=== PATIENT | male | born 1955 | race Caucasian/White ===

== ENCOUNTER → 2016-05-17 | Outpatient (CLI) | payer MEDICARE, BC, OTHER ==
[2016-05-17 11:28] LABS: ALT 81 U/L (21-72); AST 65 U/L (17-59); Alkaline Phosphatase 80 U/L (38-126); Anion Gap 14 mmol/L; Blood Urea Nitrogen 12 mg/dL (9-20); Calcium 9.5 mg/dL (8.4-10.2); Carbon Dioxide 28 mmol/L (22-30); Chloride 102 mmol/L (98-107); Cholesterol 177 mg/dL (<200); Glucose 169 mg/dL (74-99); HDL Cholesterol 46 mg/dL (40-60); Non-African American GFR(MDRD) >60 (>60 ml/min/1.73 sqM); Potassium 4.4 mmol/L (3.5-5.1); Sodium 144 mmol/L (137-145); Total Bilirubin 0.5 mg/dL (0.2-1.3); Total Protein 7.8 g/dL (6.3-8.2); Triglycerides 222 mg/dL (<150)
== END | disposition home or self-care (01) ==
LOC: LABWHC1 10:47
PROVIDERS: ATTEND Internal Medicine Endocrinology, Diabetes & Metabolism
DX: E11.65 Type 2 diabetes mellitus with hyperglycemia (principal)
CPT/HCPCS: 36415; 80053; 80061; 82043

== ENCOUNTER → 2016-05-23 | Outpatient (CLI) | payer MEDICARE, BC, OTHER | END | disposition home or self-care (01) | LOC: LABWHC1 10:42 | PROVIDERS: ATTEND Internal Medicine Endocrinology, Diabetes & Metabolism | DX: E11.65 Type 2 diabetes mellitus with hyperglycemia (principal) | CPT/HCPCS: 36415; 84439; 84443; 84480 ==

== ENCOUNTER → 2016-06-24 | Outpatient (CLI) | payer MEDICARE, BC, OTHER ==
[2016-06-24 10:24] LABS: ALT 73 U/L (21-72); AST 58 U/L (17-59); Cholesterol 177 mg/dL (<200); Creatine Kinase 69 U/L (55-170); HDL Cholesterol 48 mg/dL (40-60); Triglycerides 179 mg/dL (<150)
== END ==
LOC: LABWHC1 09:30
PROVIDERS: ATTEND Internal Medicine Clinical Cardiac Electrophysiology
DX: E78.2 Mixed hyperlipidemia (principal)
CPT/HCPCS: 36415; 80061; 82550; 84450; 84460

== ENCOUNTER 2016-07-02 15:00 | Observation (INO) | payer OTHER, MEDICARE, BC ==
[2016-07-02] MEDS ORDERED: ASPIRIN 81 MG CHEW PO STA (15:58)
[2016-07-02] MEDS ORDERED: NITROGLYCERIN SL TABS 0.4 MG TAB SUBLINGUAL STA ×3 (15:58)
--- NOTE | 2016-07-02 16:01 | ED ---
General Adult HPI - General Chief complaint: Chest Pain Stated complaint: Chest Pain/Tachycardia Time Seen by Provider: 07/02/16 15:15 Source: patient, RN notes reviewed Mode of arrival: wheelchair Limitations: no limitations - History of Present Illness Initial comments: Patient is a pleasant 61-year-old male presenting to the emergency Department with chest discomfort and tachycardia. Patient was seen his [facility] for routine follow-up for medications. Patient did have an episode of chest discomfort while there. Patient was given nitroglycerin with partial improvement of symptoms. Discomfort is still somewhat more than moderate, rated 7/10. Discomfort feels like heaviness. Patient states he was sweaty earlier. Patient admits there is some mild associated dyspnea. No nausea. Patient states he does have these episodes frequently for many years. No leg pain or swelling. No cough or fever. - Related Data Home Medications Medication Instructions Recorded Confirmed HYDROcodone/APAP 10-325MG [[place] 1 tab PO Q4H PRN 12/07/13 07/02/16 10] Omeprazole [PriLOSEC] 20 mg PO AC-BID 12/07/13 07/02/16 metFORMIN HCL [Glucophage] 1,000 mg PO QAM 12/07/13 07/02/16 Aspirin EC [Ecotrin Low Dose] 81 mg PO BID 02/19/16 07/02/16 DULoxetine HCL [Cymbalta] 120 mg PO DAILY 02/19/16 07/02/16 Pregabalin [Lyrica] 150 mg PO BID 02/19/16 07/02/16 Ubidecarenone [Co Q-10] 100 mg PO BID 02/19/16 07/02/16 Amitriptyline HCl [Elavil] 50 mg PO HS 07/02/16 07/02/16 Artificial Tears-Hypromellose 1 drops BOTH EYES TID PRN 07/02/16 07/02/16 [Artificial Tear Drops] Atorvastatin [Lipitor] 10 mg PO HS 07/02/16 07/02/16 Cinnamon Bark [Cinnamon] 500 mg PO DAILY 07/02/16 07/02/16 L.acidoph,Paracasei, B.lactis 1 cap PO QAM 07/02/16 07/02/16 [Probiotic] Losartan [Cozaar] 25 mg PO DAILY 07/02/16 07/02/16 Multivitamins, Thera [Multivitamin] 1 tab PO DAILY 07/02/16 07/02/16 metFORMIN HCL [Glucophage] 500 mg PO W/SUPPER 07/02/16 07/02/16 Allergies Allergy/AdvReac Type Severity Reaction Status Date / Time Sulfa (Sulfonamide Allergy Unknown Verified 07/02/16 16:42 Antibiotics) Childhood Review of Systems ROS Statement: Those systems with pertinent positive or pertinent negative responses have been documented in the HPI. ROS Other: All systems not noted in ROS Statement are negative. Constitutional: Denies: fever Eyes: Denies: eye pain ENT: Denies: ear pain Respiratory: Reports: dyspnea Cardiovascular: Reports: chest pain Endocrine: Reports: fatigue Gastrointestinal: Denies: abdominal pain, nausea Genitourinary: Denies: dysuria Musculoskeletal: Denies: back pain Skin: Denies: rash Neurological: Denies: weakness Past Medical History Past Medical History: Chest Pain / Angina, Diabetes Mellitus, GERD/Reflux, Hyperlipidemia, Hypertension, Musculoskeletal Disorder, Sleep Apnea/CPAP/BIPAP Additional Past Medical History / Comment(s): CHRONIC BACK PAIN. HIATAL HERNIA. GOUT. History of Any Multi-Drug Resistant Organisms: None Reported Past Surgical History: Back Surgery, Heart Catheterization, Orthopedic Surgery Additional Past Surgical History / Comment(s): 2 SPINAL SURG, LAST 07/29/13. Past Anesthesia/Blood Transfusion Reactions: No Reported Reaction Past Psychological History: No Psychological Hx Reported Smoking Status: Former smoker Past Alcohol Use History: Occasional Past Drug Use History: None Reported General Exam Limitations: no limitations General appearance: alert, in no apparent distress Head exam: Present: atraumatic Eye exam: Present: normal appearance, PERRL ENT exam: Present: normal oropharynx Neck exam: Present: normal inspection Respiratory exam: Present: normal lung sounds bilaterally Cardiovascular Exam: Present: tachycardia Expanded Peripheral pulses: 2+: Radial (R), Radial (L), Dorsalis Pedis (R), Dorsalis Pedis (L) GI/Abdominal exam: Present: soft. Absent: tenderness Extremities exam: Present: normal inspection. Absent: pedal edema, calf tenderness Neurological exam: Present: alert Psychiatric exam: Present: normal affect, normal mood Skin exam: Absent: rash Course Vital Signs 07/02/16 07/02/16 07/02/16 15:14 16:05 16:10 Temperature 97.9 F Pulse Rate 118 H 115 H 128 H Respiratory 18 18 18 Rate Blood Pressure 123/99 131/76 106/59 O2 Sat by Pulse 93 L 97 95 Oximetry EKG Findings - EKG Comments: EKG Findings:: Sinus tachycardia at 116. Normal intervals. Left axis. Inferior Q waves. No acute ST change. Medical Decision Making - Medical Decision Making Patient reevaluated and resting comfortably in bed. Patient and family updated on results and plan. Magnesium has been replaced. Case discussed in detail with Dr. Sales, who will admit for Dr. Tavares. Admission orders written. IV heparin started. Cardiology placed for consult. - Lab Data Result diagrams: 07/02/16 15:20 07/02/16 15:20 Lab Results 07/02/16 07/02/16 07/02/16 Range/Units 15:20 15:20 15:20 WBC 7.8 (3.8-10.6) k/uL RBC 4.87 (4.30-5.90) m/uL Hgb 14.1 (13.0-17.5) gm/dL Hct 42.0 (39.0-53.0) % MCV 86.4 (80.0-100.0) fL MCH 29.1 (25.0-35.0) pg MCHC 33.6 (31.0-37.0) g/dL RDW 13.9 (11.5-15.5) % Plt Count 243 (150-450) k/uL Neutrophils % 48 % Lymphocytes % 39 % Monocytes % 7 % Eosinophils % 3 % Basophils % 0 % Neutrophils # 3.8 (1.3-7.7) k/uL Lymphocytes # 3.0 (1.0-4.8) k/uL Monocytes # 0.5 (0-1.0) k/uL Eosinophils # 0.3 (0-0.7) k/uL Basophils # 0.0 (0-0.2) k/uL PT (9.0-12.0) sec INR (<1.1) APTT (22.0-30.0) sec D-Dimer (<0.60) mg/L FEU Sodium 141 (137-145) mmol/L Potassium 4.8 (3.5-5.1) mmol/L Chloride 101 (98-107) mmol/L Carbon Dioxide 24 (22-30) mmol/L Anion Gap 16 mmol/L BUN 14 (9-20) mg/dL Creatinine 1.00 (0.66-1.25) mg/dL Est GFR (MDRD) Af Amer >60 (>60 ml/min/1.73 sqM) Est GFR (MDRD) Non-Af >60 (>60 ml/min/1.73 sqM) Glucose 125 H (74-99) mg/dL Calcium 10.3 H (8.4-10.2) mg/dL Magnesium 1.4 L (1.6-2.3) mg/dL Total Bilirubin 0.7 (0.2-1.3) mg/dL AST 81 H (17-59) U/L ALT 101 H (21-72) U/L Alkaline Phosphatase 84 (38-126) U/L Total Creatine Kinase 75 (55-170) U/L CK-MB (CK-2) 1.1 (0.0-2.4) ng/mL CK-MB (CK-2) Rel Index 1.5 Troponin I <0.012 (0.000-0.034) ng/mL NT-Pro-B Natriuret Pep pg/mL Total Protein 8.2 (6.3-8.2) g/dL Albumin 4.9 (3.5-5.0) g/dL 07/02/16 07/02/16 Range/Units 15:20 15:20 WBC (3.8-10.6) k/uL RBC (4.30-5.90) m/uL Hgb (13.0-17.5) gm/dL Hct (39.0-53.0) % MCV (80.0-100.0) fL MCH (25.0-35.0) pg MCHC (31.0-37.0) g/dL RDW (11.5-15.5) % Plt Count (150-450) k/uL Neutrophils % % Lymphocytes % % Monocytes % % Eosinophils % % Basophils % % Neutrophils # (1.3-7.7) k/uL Lymphocytes # (1.0-4.8) k/uL Monocytes # (0-1.0) k/uL Eosinophils # (0-0.7) k/uL Basophils # (0-0.2) k/uL PT 11.1 (9.0-12.0) sec INR 1.1 (<1.1) APTT 24.5 (22.0-30.0) sec D-Dimer 0.18 (<0.60) mg/L FEU Sodium (137-145) mmol/L Potassium (3.5-5.1) mmol/L Chloride (98-107) mmol/L Carbon Dioxide (22-30) mmol/L Anion Gap mmol/L BUN (9-20) mg/dL Creatinine (0.66-1.25) mg/dL Est GFR (MDRD) Af Amer (>60 ml/min/1.73 sqM) Est GFR (MDRD) Non-Af (>60 ml/min/1.73 sqM) Glucose (74-99) mg/dL Calcium (8.4-10.2) mg/dL Magnesium (1.6-2.3) mg/dL Total Bilirubin (0.2-1.3) mg/dL AST (17-59) U/L ALT (21-72) U/L Alkaline Phosphatase (38-126) U/L Total Creatine Kinase (55-170) U/L CK-MB (CK-2) (0.0-2.4) ng/mL CK-MB (CK-2) Rel Index Troponin I (0.000-0.034) ng/mL NT-Pro-B Natriuret Pep <11 pg/mL Total Protein (6.3-8.2) g/dL Albumin (3.5-5.0) g/dL - Radiology Data Radiology results: image reviewed (Chest x-ray shows no acute process) Critical Care Time Critical Care Time: Yes Total Critical Care Time: 31 Disposition Clinical Impression: Unstable angina pectoris Disposition: ADMITTED IP TO THIS HOSP
[2016-07-02 16:10] LABS: Basophils % (A) 0 %; CH 29.8; CHCM 34.7; Eosinophils # (A) 0.3 k/uL (0-0.7); Eosinophils % (A) 3 %; HDW 2.98; HGB 14.1 gm/dL (13.0-17.5); Luc # (Auto) 0.22; Luc % (Auto) 3; Lymphocytes % (A) 39 %; MCH 29.1 pg (25.0-35.0); MCHC 33.6 g/dL (31.0-37.0); MCV 86.4 fL (80.0-100.0); Mean Platelet Volume 8.2; Monocytes # (A) 0.5 k/uL (0-1.0); Monocytes % (A) 7 %; Neutrophils # (A) 3.8 k/uL (1.3-7.7); Neutrophils % (A) 48 %; RBC 4.87 m/uL (4.30-5.90); RDW 13.9 % (11.5-15.5); WBC 7.8 k/uL (3.8-10.6); WBC (Perox) 7.79
[2016-07-02 16:22] LABS: ALT 101 U/L (21-72); AST 81 U/L (17-59); Alkaline Phosphatase 84 U/L (38-126); Anion Gap 16 mmol/L; Blood Urea Nitrogen 14 mg/dL (9-20); Calcium 10.3 mg/dL (8.4-10.2); Carbon Dioxide 24 mmol/L (22-30); Chloride 101 mmol/L (98-107); Glucose 125 mg/dL (74-99); Magnesium 1.4 mg/dL (1.6-2.3); Non-African American GFR(MDRD) >60 (>60 ml/min/1.73 sqM); Potassium 4.8 mmol/L (3.5-5.1); Sodium 141 mmol/L (137-145); Total Bilirubin 0.7 mg/dL (0.2-1.3); Total Protein 8.2 g/dL (6.3-8.2)
--- NOTE | 2016-07-02 16:26 | XR ---
EXAMINATION TYPE: XR chest 2V DATE OF EXAM: 07/02/2016 4:20 PM COMPARISON: 02/19/2016 INDICATION: Chest pain TECHNIQUE: Single frontal view of the chest is obtained. FINDINGS: The heart size is normal. The pulmonary vasculature is normal. The lungs are clear. IMPRESSION: 1. No acute pulmonary process.
[2016-07-02 16:27] LABS: INR 1.1 (<1.1); Partial Thromboplastin Time 24.5 sec (22.0-30.0); Prothrombin Time 11.1 sec (9.0-12.0)
[2016-07-02 16:36] LABS: Creatine Kinase 75 U/L (55-170)
[2016-07-02] MEDS ORDERED: MAGNESIUM OXIDE 400 MG TAB PO STA (16:42)
[2016-07-02] MEDS ORDERED: MAGNESIUM SULFATE-D5W PMX 1 GM in DEXTROSE/WATER 1 100ML.BAG IVPB ONE (16:42)
[2016-07-02 16:50] LABS: Creatine Kinase MB 1.1 ng/mL (0.0-2.4); Troponin I <0.012 ng/mL (0.000-0.034)
[2016-07-02] MEDS ORDERED: NITROGLYCERIN OINT 1 INCH/GM PACKET TOPICAL STA (16:53)
[2016-07-02] MEDS ORDERED: HEPARIN SODIUM,PORCINE 5,000 UNIT/ML 1 ML VIAL IV PRN (17:10)
[2016-07-02] MEDS ORDERED: HEPARIN SODIUM,PORCINE 5,000 UNIT/ML 1 ML VIAL IV ONE (17:10)
[2016-07-02] MEDS ORDERED: NITROGLYCERIN SL TABS 0.4 MG TAB SUBLINGUAL PRN (17:10)
[2016-07-02] MEDS ORDERED: HEPARIN SODIUM,PORCINE/D5W PMX 25,000 UNIT in DEXTROSE/WATER 1 500ML.BAG IV SCH (17:15)
[2016-07-02] MEDS ORDERED: ARTIFICIAL TEARS-HYPROMELLOSE DROPS 15 ML BTL BOTH EYES PRN (17:16)
[2016-07-02 18:25] LABS: Glucose,Whole Blood 136 mg/dL (75-99)
[2016-07-02] MEDS: metFORMIN 500 MG TAB PO SCH (18:56)
[2016-07-02] MEDS: PANTOPRAZOLE 40 MG TABLET PO SCH (18:57)
[2016-07-02] MEDS: PREGABALIN 75 MG CAP PO SCH (20:30)
[2016-07-02 20:34] LABS: Glucose,Whole Blood 156 mg/dL (75-99)
[2016-07-02] MEDS ORDERED: NON-FORMULARY DRUG (Ubidecarenone [Co Q-10] 100 MG) PO SCH (21:00)
[2016-07-02] MEDS ORDERED: ATORVASTATIN 10 MG TAB PO SCH (21:00)
[2016-07-02] MEDS ORDERED: AMITRIPTYLINE HCL 50 MG TAB PO SCH (21:00)
[2016-07-02 23:14] LABS: Creatine Kinase 73 U/L (55-170)
[2016-07-02 23:28] LABS: Troponin I <0.012 ng/mL (0.000-0.034)
[2016-07-02] MEDS: NITROGLYCERIN OINT 1 INCH/GM PACKET TOPICAL SCH (23:32)
[2016-07-03] MEDS: HYDROcodone/APAP 10-325MG 1 EACH TAB PO PRN ×2 (03:51→14:07)
[2016-07-03 04:01] LABS: Mean Platelet Volume 7.9
[2016-07-03 04:13] LABS: Cholesterol 159 mg/dL (<200); Creatine Kinase 60 U/L (55-170); HDL Cholesterol 36 mg/dL (40-60)
[2016-07-03 04:25] LABS: Creatine Kinase MB 0.8 ng/mL (0.0-2.4); Troponin I <0.012 ng/mL (0.000-0.034)
[2016-07-03 04:31] LABS: Triglycerides 695 mg/dL (<150)
[2016-07-03] MEDS: NITROGLYCERIN OINT 1 INCH/GM PACKET TOPICAL SCH ×3 (05:38→18:31)
[2016-07-03 07:02] LABS: Glucose,Whole Blood 141 mg/dL (75-99)
[2016-07-03 08:02] VITALS: RESP 18
[2016-07-03] MEDS ORDERED: NON-FORMULARY DRUG (Cinnamon Bark [Cinnamon] 500 MG) PO SCH (09:00)
[2016-07-03] MEDS ORDERED: ASPIRIN 325 MG TAB PO SCH (09:00)
[2016-07-03] MEDS ORDERED: metFORMIN 500 MG TAB PO SCH (09:00)
[2016-07-03] MEDS ORDERED: DULoxetine HCL 60 MG CAPSULE.DR PO SCH (09:00)
[2016-07-03] MEDS ORDERED: LOSARTAN 25 MG TAB PO SCH (09:00)
[2016-07-03] MEDS ORDERED: REGADENOSON 0.4 MG/5 ML SYRINGE IV ONE (10:50)
[2016-07-03] MEDS ORDERED: AMINOPHYLLINE 500 MG/20 ML VIAL IV PRN (10:50)
[2016-07-03] MEDS ORDERED: FENOFIBRATE 160 MG TAB PO SCH (11:00)
[2016-07-03] MEDS ORDERED: METOPROLOL SUCCINATE (ER) 25 MG TAB.ER.24H PO SCH (11:00)
[2016-07-03 11:04] LABS: Hemoglobin A1C 7.1 % (4.2-6.1)
--- NOTE | 2016-07-03 11:21 | CONS ---
DATE OF CONSULTATION: Mr. Nation is a 61-year-old gentleman who is seen for the cardiac evaluation. This patient has been regularly followed by Dr. Bradley. He was in the office yesterday and at that time patient was noticed to be tachycardic and he complained some intermittent heaviness in the chest. Patient gives a history that he gets this heaviness in the chest on and off which is not definitely related to exertion. Patient had a cardiac catheterization done several years ago which was normal. There is no definite previous history of myocardial infarction. Patient has a history of diabetes. EKG showed evidence of sinus tachycardia and left axis deviation. Patient's past medical history includes a history of diabetes, hyperlipidemia, hypertension, sleep apnea. Patient also has a history of chronic back pain, hiatal hernia, gout, two spinal surgeries and a back surgery, as well as orthopedic surgery. SMOKING HISTORY: Patient is a former smoker. Patient's home medications included Cozaar, Glucophage, Cinnamon, Lipitor 10 mg, Elavil, Prilosec, Cymbalta and Lyrica. Physical examination at present reveals a 61-year-old gentleman who is obesely-built, does not appear to be in any acute distress at present. Patient's heart rate initially was 120, heart rate now is in 90 to 100. Blood pressure is 110/70 mmHg. HEENT examination is negative. Neck is supple. There is no increase in jugular venous pressure. Both the carotid pulses are felt. There is no bruit. Chest is symmetrical. HEART: The PMI is not felt. First and second heart sounds are normal. There is no evidence of any murmur. Lungs are clinically clear to auscultation and percussion. Abdomen is soft. EXTREMITIES: Peripheral pulsations are 2+. EKG shows sinus tachycardia with a left axis deviation. Cardiac enzymes are negative. FINAL IMPRESSION: 1. This patient is admitted with palpitations and chest discomfort which is suggestive of atypical. Cardiac enzymes are normal. EKG does not show any acute ischemic changes. 2. History of hyperlipidemia and a significant elevation in the triglycerides. RECOMMENDATIONS: I will put the patient on metoprolol succinate 25 mg daily and we will ( ) the patient with Lexiscan Cardiolite study. Patient will be also started on TriCor 160 mg daily and Lipitor will be increased to 40 mg daily. The patient's triglycerides are in the range of 650.
[2016-07-03 11:47] LABS: Glucose,Whole Blood 125 mg/dL (75-99)
[2016-07-03] MEDS ORDERED: MULTIVITAMINS, THERA 1 EACH TAB PO SCH (12:00)
--- NOTE | 2016-07-03 13:58 | NM ---
EXAMINATION TYPE: NM stress lexiscan cardiolite DATE OF EXAM: 07/03/2016 1:45 PM COMPARISON: 05/04/2010 HISTORY: Chest pain TECHNIQUE: After the intravenous administration of 10.97 mCi Tc 99m Sestamibi - Cardiolite resting S PECT images acquired 45 minutes post injection. The patient received 0.4mg Lexiscan, 27.2 mCi Tc 99m Sestamibi - Stress images obtained [address] injection FINDINGS: Review of stress and rest SPECT images demonstrates no distinct perfusion abnormality. Gated analysi s shows normal wall motion with an estimated left ventricular ejection fraction of 67 %. There is diminished radiotracer accumulation along the inferior wall on resting and stress images. Th is appears to be fixed. No stress-induced ischemic changes are evident. IMPRESSION: 1. Fixed defect inferior wall can be compatible with prior infarct. 2. No scintigraphic evidence for reversible ischemia. 3. Fixed defect is an interval finding from the comparison of 2010. Correlate for interval infarct.
[2016-07-03] MEDS: PANTOPRAZOLE 40 MG TABLET PO SCH ×2 (14:01→18:31)
[2016-07-03] MEDS: PREGABALIN 75 MG CAP PO SCH (14:01)
[2016-07-03] MEDS: MAGNESIUM SULFATE-D5W PMX 1 GM in DEXTROSE/WATER 1 100ML.BAG IVPB SCH ×3 (14:08→16:33)
[2016-07-03 15:39] VITALS: BP 150/84; PULSE 101; TEMP 98.1
[2016-07-03 17:11] LABS: Glucose,Whole Blood 172 mg/dL (75-99)
--- NOTE | 2016-07-03 17:51 | HP ---
DATE OF ADMISSION: This dictation is both H&P and discharge summary. Patient is a 61-year-old who came in from [facility] where he was found to be tachycardic. Patient was having some pressure-like sensation without any chest heaviness sensation from tachycardia. The patient's TSH will be obtained and patient's pain is mostly related to tachycardia and patient was sent over by Cardiology. Patient underwent stress test which was negative. Patient's chest pain does not appear to be gastroesophageal reflux disease, nonreproducible and completely resolved at this point of time. Patient underwent a stress test, which showed some inferior wall perfusion defects which were also found in the past and after which patient underwent cardiac catheterization. At that time, the patient did not have any significant coronary occlusion. The patient's EKG showed sinus tachycardia and patient's d-dimer is negative. Patient was evaluated by Cardiology and patient has hypertriglyceridemia because of which, they are recommending a statin and TriCor. The patient's liver enzymes are borderline elevated, because of which I am repeating liver enzymes in about a week considering that he is also going to take TriCor which can elevated liver enzymes and statin, which can also elevate liver enzymes. Patient will be discharged today if cleared by Cardiology. Patient denied any fever, chills, cough, runny nose. ROS: All other systems were reviewed and were negative. PAST MEDICAL HISTORY: Significant for diabetes mellitus, gastroesophageal reflux disease, hyperlipidemia, hypertension, osteoarthritis, sleep apnea, back surgery in the past, anxiety and depression. Family history is significant for asthma, CVA, TIA, dementia, hyperlipidemia, hypertension, osteoarthritis. SOCIAL HISTORY: Quit smoking in April 2016. Denied any alcohol abuse or any drug abuse. PHYSICAL EXAMINATION: VITAL SIGNS: Temperature 98.1, pulse of 101, respiratory rate of 18, blood pressure is 150/84, saturating at 92% on room air. GENERAL: The patient is alert and oriented x3, not in any acute distress. Well developed, well nourished. HEENT: Pupils are round and equally reacting to light. EOMI. No scleral icterus. No conjunctival pallor. Normocephalic, atraumatic. No pharyngeal erythema. No thyromegaly. CARDIOVASCULAR: S1 and S2 present, tachycardic. No murmurs, rubs, or gallops. PULMONARY: Chest is clear to auscultation, no wheezing or crackles. ABDOMEN: Soft, nontender, nondistended, normoactive bowel sounds. No palpable organomegaly. MUSCULOSKELETAL: No joint swelling or deformity. EXTREMITIES: No cyanosis, clubbing, or pedal edema. NEUROLOGICAL: Gross neurological examination did not reveal any focal deficits. SKIN: No rashes. LABORATORY DATA: CBC, CMP, essentially within normal limits. Magnesium of 1.4 and now to 1.6, which will be supplemented. Calcium due to ( ) patient is minimally elevated. AST and ALT are 81 and 101, minimally elevated due to probably nonalcoholic steatohepatitis. ASSESSMENT AND PLAN: 1. Palpitations and chest discomfort. Stress test findings as mentioned above. Patient if cleared by Cardiology will be discharged today. 2. Hyperlipidemia and hypertriglyceridemia. 3. Hypertension. 4. Gastroesophageal reflux disease. 5. Type 2 diabetes mellitus. 6. Osteoarthritis. 7. Sleep apnea. Patient will be discharged today. Patient will continue his home medications. Additionally, will rule out coronary artery disease and unstable angina. Patient will follow with his primary care physician, Dr. Usman Cordoba in 3 to 7 days. Activity as tolerated. Follow with Mirna in about a week. Repeat liver enzymes in a week, results to be faxed to PCP. LUIS DANIEL
[2016-07-03] MEDS: metFORMIN 500 MG TAB PO SCH (18:31)
[2016-07-03] MEDS ORDERED: ATORVASTATIN 40 MG TAB PO SCH (21:00)
--- NOTE | 2016-07-04 07:50 | ECHOF ---
Referral Reason:chest pain MEASUREMENTS -------- HEIGHT: 177.8 cm WEIGHT: 116.6 kg BP: 117/67 RVIDd: 3.6 cm (< 3.3) IVSd: 1.1 cm (0.6 - 1.1) LVIDd: 4.4 cm (3.9 - 5.3) LVPWd: 1.3 cm (0.6 - 1.1) IVSs: 1.7 cm LVIDs: 2.9 cm LVPWs: 1.6 cm LA Diam: 3.8 cm (2.7 - 3.8) LAESV Index (A-L): 13.73 ml/m Ao Diam: 3.6 cm (2.0 - 3.7) AV Cusp: 2.6 cm (1.5 - 2.6) LA Diam: 3.6 cm (2.7 - 3.8) MV EXCURSION: 17.701 mm (> 18.000) MV EF SLOPE: 42 mm/s (70 - 150) EPSS: 0.6 cm MV E Ace: 0.60 m/s MV DecT: 179 ms MV A Ace: 0.63 m/s MV E/A Ratio: 0.95 FINDINGS -------- Sinus rhythm. This was a technically good study. The left ventricular size is normal. There is mild concentric left ventricular hypertrophy. Overall left ventricular systolic function is normal with, an EF between 60 - 65 %. The right ventricle is mildly enlarged. The left atrium is normal in size. Normal LA size by volume 22+/-6 ml/m2. The right atrium is normal in size. The aortic valve is trileaflet and appears structurally normal. Mild mitral annular calcification present. The tricuspid valve appears structurally normal. No regurgitation noted The aortic root size is normal. Normal inferior vena cava with normal inspiratory collapse consistent with estimated right atrial pressure of 5 mmHg. There is no pericardial effusion. CONCLUSIONS -------- 1. Sinus rhythm. 2. Mild mitral annular calcification present. 3. The tricuspid valve appears structurally normal. 4. The aortic root size is normal. 5. Normal inferior vena cava with normal inspiratory collapse consistent with estimated right atrial pressure of 5 mmHg. 6. There is no pericardial effusion. 7. This was a technically good study. 8. The left ventricular size is normal. 9. There is mild concentric left ventricular hypertrophy. 10. Overall left ventricular systolic function is normal with, an EF between 60 - 65 %. 11. The right ventricle is mildly enlarged. 12. Normal LA size by volume 22+/-6 ml/m2. 13. The right atrium is normal in size. 14. The aortic valve is trileaflet and appears structurally normal. CASE MANAGEMENT ASSOCIATE: Loni Rhodes RDCS
--- NOTE | 2016-07-04 08:42 | EST ---
DATE OF SERVICE: 07/03/2016 AGE: 61Y SEX: M HT: 5'10-/2" WT: 260 lbs. Protocol Larry: Other: Lexiscan Cardiolite Stage: Dur. of Exercise: *Heart Rate Blood Pressure *Rest: 95 Rest: 124/68 * *Max. Achieved: 108 Maximum BP: 124/68 85% PMHR: 157 100% PMHR: 161 *METS: INDICATIONS: MEDICATIONS: Baseline EKG shows sinus rhythm, normal axis, normal intervals. Patient was given intravenous Lexiscan as per protocol. Did not have chest pain or diagnostic ST segment depression. CONCLUSION: 1. Negative stress test by EKG criteria. 2. Cardiolite portion of the stress test will be reported separately.
--- NOTE | 2016-07-14 18:29 | CDI ---
Dr. Sales or Brooks, Pt magnesium level 1.4 and was given magnesium in the EC and on the floor. Please add a diagnosis for the low magnesium. "low magnesium" "hypomagnesium" Thank you, Renetta CARY
== END 2016-07-03 18:35 | disposition home or self-care (01) ==
LOC: EC 15:00 → 3OBS 17:11
PROVIDERS: ADMIT Internal Medicine; ATTEND Internal Medicine
DX: R07.89 Other chest pain (principal); R00.2 Palpitations; R00.0 Tachycardia, unspecified; E78.5 Hyperlipidemia, unspecified; E78.1 Pure hyperglyceridemia; I10 Essential (primary) hypertension; K21.9 Gastro-esophageal reflux disease without esophagitis; E11.9 Type 2 diabetes mellitus without complications; M19.90 Unspecified osteoarthritis, unspecified site; Z99.89 Dependence on other enabling machines and devices; G47.30 Sleep apnea, unspecified; F41.9 Anxiety disorder, unspecified; F32.9 Major depressive disorder, single episode, unspecified; M10.9 Gout, unspecified; R74.8 Abnormal levels of other serum enzymes; G89.29 Other chronic pain; M54.9 Dorsalgia, unspecified; Z87.891 Personal history of nicotine dependence; Z79.899 Other long term (current) drug therapy; Z79.84 Long term (current) use of oral hypoglycemic drugs; Z79.82 Long term (current) use of aspirin; Z88.2 Allergy status to sulfonamides; Z82.49 Family history of ischemic heart disease and other diseases of the circulatory system; Z82.3 Family history of stroke
CPT/HCPCS: 99291; 96365; 96376; 36415; 94760; 93005; 93017; 93306; 85379; 83880; 80061; 80053; 84443; 83036; 82550 ×2; 82553 ×2; 83735 ×2; 84484 ×2; 85025; 85049; 85610; 85730 ×2; 71020; 78452; G0378 ×2; A9500; J1644 ×2; J3475 ×2; J2785; 96366; 96368

== ENCOUNTER → 2017-03-17 | Outpatient (CLI) | payer MEDICARE, BC | END | disposition home or self-care (01) | LOC: LABWHC1 12:38 | PROVIDERS: ATTEND Internal Medicine Endocrinology, Diabetes & Metabolism | DX: E11.65 Type 2 diabetes mellitus with hyperglycemia (principal) | CPT/HCPCS: 36415; 84439; 84443; 84681 ==

== ENCOUNTER → 2017-05-16 | Outpatient (CLI) | payer OTHER ==
[2017-05-16 17:21] LABS: ALT 96 U/L (21-72); AST 66 U/L (17-59); Albumin 4.8 g/dL (3.5-5.0); Alkaline Phosphatase 67 U/L (38-126); Anion Gap 15 mmol/L; Blood Urea Nitrogen 11 mg/dL (9-20); Calcium 10.4 mg/dL (8.4-10.2); Carbon Dioxide 26 mmol/L (22-30); Chloride 103 mmol/L (98-107); Glucose 129 mg/dL (74-99); Potassium 4.4 mmol/L (3.5-5.1); Sodium 144 mmol/L (137-145); Total Bilirubin 0.2 mg/dL (0.2-1.3); Total Protein 7.5 g/dL (6.3-8.2)
[2017-05-16 17:36] LABS: T4, Free (Free Thyroxine) 1.04 ng/dL (0.78-2.19)
== END | disposition home or self-care (01) ==
LOC: LABWHC1 16:52
PROVIDERS: ATTEND Internal Medicine Endocrinology, Diabetes & Metabolism
DX: E11.65 Type 2 diabetes mellitus with hyperglycemia (principal); I10 Essential (primary) hypertension
CPT/HCPCS: 36415; 80053; 84439; 84443; 84681

== ENCOUNTER → 2017-07-31 | Outpatient (CLI) | payer OTHER ==
--- NOTE | 2017-07-31 14:23 | US ---
EXAMINATION TYPE: US abdomen limited DATE OF EXAM: 07/31/2017 COMPARISON: NONE CLINICAL HISTORY: 62-year-old male with abnormal results of liver function studies R94.5. TECHNIQUE: Multiple sonographic images of the right upper quadrant are obtained. FINDINGS: Liver Length: 19.3 cm Gallbladder Wall: 0.3 cm CBD: 0.4 cm Right Kidney: 11.5 x 6.2 x 5.5 cm Pancreas: Obscured by bowel gas Liver: enlarged, attenuating, hypoechoic area adjacent to GB = 1.7 x 0.9 x 1.5cm - focal sparing Gallbladder: no evidence of stones Evidence for sonographic Bland's sign: no CBD: appears wnl Right Kidney: no evidence of hydronephrosis IMPRESSION: Hepatomegaly (19.3 cm) with severe hepatic steatosis. Correlate with LFTs, lipid profile, and patient risk factors.
== END | disposition home or self-care (01) ==
LOC: RADUSWWP 10:18
DX: K76.0 Fatty (change of) liver, not elsewhere classified (principal); R16.0 Hepatomegaly, not elsewhere classified
CPT/HCPCS: 76705

== ENCOUNTER 2017-08-12 07:33 | Day surgery (SDC) | payer OTHER ==
[2017-08-08 12:36] VITALS: BMI 37.3
[~2017-08-12 07:33] MED LIST: LACTATED RINGERS 1,000 ML IV SCH; LIDOCAINE 1% 20 ML VIAL (10MG/ML) FOR IV START INTRADERMA PRN; MIDAZOLAM 2 MG/2 ML VIAL IV PRN
[2017-08-12] MEDS ORDERED: LACTATED RINGERS 1,000 ML IV ONE (07:43)
[2017-08-12 07:54] VITALS: RESP 18
[2017-08-12 07:55] VITALS: TEMP 98.6
[2017-08-12 08:01] LABS: Glucose,Whole Blood 136 mg/dL (75-99)
[2017-08-12] MEDS ORDERED: PROPOFOL 10 MG/ML 20 ML VIAL IV ONE (08:57)
[2017-08-12 09:36] LABS: Glucose,Whole Blood 119 mg/dL (75-99)
[2017-08-12 09:57] VITALS: BP 125/68; PULSE 84
--- NOTE | 2017-08-12 11:00 | P.PCN ---
Date of Procedure: 08/12/17 Procedure(s) Performed: Procedure: Colonoscopy and biopsy. Preoperative diagnosis: Screening for neoplasia, patient has history of polyps. Postoperative diagnosis: 1. Diminutive polyp in the distal sigmoid biopsied but no large polyps or cancer. 2. Low-grade internal hemorrhoids without bleeding at the time of this exam. Preparation: HalfLytely prep. Sedation: Was provided by anesthesia. Brief clinical history: The patient a 62-year-old male who is scheduled for this evaluation for screening for neoplasia because of history of polyps. His last exam was around 5 years ago. The patient has no abdominal complaints, bleeding or anemia. Procedure: With the patient on his left lateral decubitus position and after informed consent and adequate sedation, the perianal area was inspected and it did not show any fissures or fistulas. There were no masses felt on digital rectal examination. The Olympus CFQ 160L video colonoscope was then inserted in the rectum in the usual fashion and advanced to the cecum. The mucosa appeared healthy. No obvious diverticular disease was noted. There was a diminutive polyp in the distal sigmoid which I biopsied but there were no large polyps or cancer. I retroflexed the endoscope in the rectum before the endoscope was withdrawn. Low-grade internal hemorrhoids were noted with no evidence of bleeding. The patient tolerated the procedure well. Plan: The patient was reassured. Discussed dietary measures and local care for hemorrhoids. He will follow up with you as planned and I recommended repeat exam in 5 years.
== END 2017-08-12 10:22 | disposition home or self-care (01) ==
LOC: ORWHC2ENDO 07:33
DX: Z12.11 Encounter for screening for malignant neoplasm of colon (principal); K63.5 Polyp of colon; K64.8 Other hemorrhoids; Z86.010 Personal history of colon polyps; K21.9 Gastro-esophageal reflux disease without esophagitis; I25.10 Atherosclerotic heart disease of native coronary artery without angina pectoris; I10 Essential (primary) hypertension; E78.5 Hyperlipidemia, unspecified; G47.33 Obstructive sleep apnea (adult) (pediatric); Z99.89 Dependence on other enabling machines and devices; M10.9 Gout, unspecified; F41.9 Anxiety disorder, unspecified; F32.9 Major depressive disorder, single episode, unspecified; E66.01 Morbid (severe) obesity due to excess calories; Z68.37 Body mass index [BMI] 37.0-37.9, adult; M19.90 Unspecified osteoarthritis, unspecified site; Z79.84 Long term (current) use of oral hypoglycemic drugs; Z79.82 Long term (current) use of aspirin; Z79.899 Other long term (current) drug therapy; Z88.2 Allergy status to sulfonamides
CPT/HCPCS: 88305; 45380; J2704

== ENCOUNTER → 2017-08-26 | Outpatient (CLI) | payer OTHER ==
[2017-08-26 13:58] LABS: ALT 82 U/L (21-72); AST 48 U/L (17-59); Alkaline Phosphatase 54 U/L (38-126); Anion Gap 17 mmol/L; Blood Urea Nitrogen 13 mg/dL (9-20); Calcium 10.4 mg/dL (8.4-10.2); Carbon Dioxide 27 mmol/L (22-30); Chloride 103 mmol/L (98-107); Cholesterol 143 mg/dL (<200); Glucose 95 mg/dL (74-99); HDL Cholesterol 54 mg/dL (40-60); LDL Cholesterol,Calculated 67 mg/dL (0-99); Potassium 4.3 mmol/L (3.5-5.1); Sodium 147 mmol/L (137-145); Total Bilirubin 0.3 mg/dL (0.2-1.3); Total Protein 7.8 g/dL (6.3-8.2); Triglycerides 111 mg/dL (<150)
[2017-08-26 21:51] LABS: Hemoglobin A1C 7.8 % (4.0-6.0)
== END ==
LOC: LABWHC1 13:18
PROVIDERS: ATTEND Internal Medicine Endocrinology, Diabetes & Metabolism
DX: E11.65 Type 2 diabetes mellitus with hyperglycemia (principal)
CPT/HCPCS: 36415; 80053; 80061; 82043; 82570; 83036

== ENCOUNTER → 2017-08-28 | Outpatient (CLI) | payer OTHER ==
[2017-08-28 15:55] LABS: Basophils % (A) 1 %; Eosinophils # (A) 0.3 k/uL (0-0.7); Eosinophils % (A) 4 %; HCT 36.7 % (39.0-53.0); HGB 12.5 gm/dL (13.0-17.5); Lymphocytes # (A) 3.1 k/uL (1.0-4.8); Lymphocytes % (A) 45 %; MCH 28.5 pg (25.0-35.0); MCV 83.7 fL (80.0-100.0); Mean Platelet Volume 7.9; Monocytes # (A) 0.3 k/uL (0-1.0); Monocytes % (A) 4 %; Neutrophils % (A) 44 %; Platelet Count 237 k/uL (150-450); RBC 4.39 m/uL (4.30-5.90); RDW 14.6 % (11.5-15.5); WBC 6.9 k/uL (3.8-10.6)
[2017-08-28 16:25] LABS: ALT 76 U/L (21-72); AST 49 U/L (17-59); Albumin 4.8 g/dL (3.5-5.0); Alkaline Phosphatase 54 U/L (38-126); Anion Gap 17 mmol/L; Blood Urea Nitrogen 16 mg/dL (9-20); Calcium 9.9 mg/dL (8.4-10.2); Carbon Dioxide 25 mmol/L (22-30); Chloride 105 mmol/L (98-107); Glucose 85 mg/dL (74-99); Potassium 4.1 mmol/L (3.5-5.1); Sodium 147 mmol/L (137-145); Total Bilirubin 0.3 mg/dL (0.2-1.3); Total Protein 7.4 g/dL (6.3-8.2)
[2017-08-28 16:42] LABS: T4, Free (Free Thyroxine) 0.98 ng/dL (0.78-2.19)
[2017-08-29 01:24] LABS: Iron Saturation 16.55 (15.00-50.00)
[2017-08-29 01:38] LABS: Vitamin D 25 Hydroxy 13.8 ng/mL (30.0-100.0)
== END | disposition home or self-care (01) ==
LOC: LABWHC1 15:02
PROVIDERS: ATTEND Psychiatry & Neurology Neurology
DX: E55.9 Vitamin D deficiency, unspecified (principal); R41.3 Other amnesia; R25.2 Cramp and spasm
CPT/HCPCS: 36415; 80053; 82306; 82607; 83540; 83550; 84207; 84439; 84443; 84466; 84481; 85025

== ENCOUNTER 2017-09-25 08:48 | Day surgery (SDC) | payer OTHER ==
[2017-09-25] MEDS ORDERED: ALPRAZolam 0.5 MG TAB PO ONE (08:53)
[2017-09-25 09:22] VITALS: TEMP 98
[2017-09-25 09:31] LABS: Mean Platelet Volume 8.1; Platelet Count 253 k/uL (150-450)
[2017-09-25] MEDS ORDERED: HYDROmorphone 2 MG TAB PO STA (09:34)
[2017-09-25 09:53] LABS: INR 1.1 (<1.2); Prothrombin Time 10.6 sec (9.0-12.0)
[2017-09-25 10:15] LABS: Glucose,Whole Blood 87 mg/dL (75-99)
--- NOTE | 2017-09-25 11:06 | US ---
EXAMINATION TYPE: US biopsy liver DATE OF EXAM: 09/25/2017 HISTORY: Elevated liver function tests. PROCEDURE: Maximal barrier technique was utilized. After informed consent, the skin overlying a suit able path to the liver was localized using ultrasound, the skin was prepped and draped. Ultrasound w as utilized with sterile technique. Lidocaine was used for local anesthesia. A skin polo made with a scalpel. Under direct ultrasound guidance, an 18-gauge needle was advanced into the left lobe of th e liver and core biopsy obtained. Hemostasis was achieved. There was no immediate complication and patient remained in stable condition. Specimen submitted in formalin to Pathology. IMPRESSION: STATUS POST ULTRASOUND GUIDED CORE BIOPSY OF THE LEFT LOBE OF THE LIVER, PATHOLOGY SHIVA Alanis PERFORMED BY THE UNDERSIGNED.
[2017-09-25 14:09] VITALS: BP 122/57; PULSE 80; RESP 18
== END 2017-09-25 14:35 | disposition home or self-care (01) ==
LOC: RADPROMAIN 08:48
DX: K75.81 Nonalcoholic steatohepatitis (NASH) (principal); K74.0 Hepatic fibrosis
CPT/HCPCS: 47000; 76942; 85049; 85610; 85730; 88307; 88313

== ENCOUNTER → 2017-10-09 | Outpatient (CLI) | payer OTHER ==
[2017-10-09 17:42] LABS: Amorphous Sediment,Urine Rare /hpf; Appearance,Urine Turbid (Clear); Bilirubin,Urine Negative (Negative); Blood,Urine Negative (Negative); Color,Urine Yellow; Glucose,Urine (UA) Trace (Negative); Ketones,Urine Negative (Negative); Leukocyte Esterase,Urine Negative (Negative); Mucus,Urine Rare /hpf; Nitrite,Urine Negative (Negative); Protein,Urine Negative (Negative); RBC,Urine 2 /hpf (0-5); Specific Gravity,Urine 1.019 (1.001-1.035); Uric Acid Crystals,Urine Many /hpf; Urobilinogen,Urine <2.0 mg/dL (<2.0); WBC,Urine 1 /hpf (0-5)
== END | disposition home or self-care (01) ==
LOC: LABWHC1 16:04
PROVIDERS: ATTEND Orthopaedic Surgery
DX: M25.561 Pain in right knee (principal); M17.11 Unilateral primary osteoarthritis, right knee; M21.161 Varus deformity, not elsewhere classified, right knee; E11.9 Type 2 diabetes mellitus without complications
CPT/HCPCS: 36415; 81001; 93005

== ENCOUNTER → 2018-03-25 | Outpatient (CLI) | payer OTHER ==
[2018-03-26 04:06] LABS: Albumin 5.1 g/dL (3.80-4.90); Albumin/Globulin Ratio 2.83 (1.20-2.10); Bilirubin, Conjugated 0.2 mg/dL (0.20-0.40); Bilirubin,Unconjugated 0.2 mg/dL; Globulin 1.8 g/dL (2.1-3.7); Total Bilirubin 0.4 mg/dL (0.3-1.2); Total Protein 6.9 g/dL (6.2-8.2)
== END | disposition home or self-care (01) ==
LOC: LABWHC1 15:30
DX: K75.81 Nonalcoholic steatohepatitis (NASH) (principal)
CPT/HCPCS: 36415; 80076

== ENCOUNTER → 2018-08-28 | Outpatient (CLI) | payer OTHER | LOC: LABPAT 13:47 | PROVIDERS: ATTEND Orthopaedic Surgery | DX: Z01.812 Encounter for preprocedural laboratory examination (principal) | CPT/HCPCS: 87070 ==

== ENCOUNTER 2018-09-14 08:06 | Inpatient (IN) | payer OTHER ==
[2018-09-08 11:54] VITALS: BMI 36.6
--- NOTE | 2018-09-13 12:14 | HP ---
HISTORY AND PHYSICAL REASON FOR ADMISSION: Surgery scheduled for 09/14/2018 Barry Khalil is a 63-year-old patient seen with symptomatic right knee osteoarthritis. We discussed treatment options. He elected to proceed with right total knee arthroplasty. Consent regarding the procedure was obtained. Medical clearance provided by Dr. Kebede. Cardiac clearance provided by Dr. Bradley. PAST MEDICAL HISTORY: Insulin-dependent diabetes, hyperlipidemia, hypertension, gastroesophageal reflux disease. PAST SURGICAL HISTORY: Bilateral knee arthroscopy, lumbar spine surgery. MEDICATIONS ARE: Insulin, aspirin, atorvastatin, losartan, metformin, Victoza. ALLERGIES: FENTANYL, METHADONE, SULFA, VIAGRA. SOCIAL HISTORY: Denies current tobacco use. PHYSICAL EXAMINATION: Evaluation of the right knee range of motion is -3 to 115 degrees, tenderness medial joint line. Crepitus medial patellofemoral compartments range of motion. Pain with patellofemoral compression. Ligaments stable. Hip rotation without pain. Distal neurovascular exam is intact. RADIOGRAPHS: Radiographs of the right knee reveal moderate to severe medial moderate patellofemoral compartment osteoarthritis. IMPRESSION: 1. Right knee osteoarthritis. 2. Insulin-dependent diabetes. 3. Hypertension. 4. Hyperlipidemia. PLAN: Right total knee arthroplasty. Surgery scheduled 09/14/2018. MMODL / IJN: [id number] /
[~2018-09-14 08:06] MED LIST changes: +ACETAMINOPHEN TAB 500 MG TAB PO ONE; +DEXAMETHASONE SOD PHOSPHATE 10 MG/ML 1 ML VIAL IV ONE; +HYDROmorphone 0.5 MG/0.5 ML SYRINGE IVP PRN; -LIDOCAINE 1% 20 ML VIAL (10MG/ML) FOR IV START INTRADERMA PRN; +MELOXICAM 7.5 MG TAB PO ONE; +ONDANSETRON 4 MG/2 ML VIAL IVP ONE; +SCOPOLAMINE 1.5MG/72HR PATCH TRANSDERM ONE; +TRANEXAMIC ACID 1,000 MG in SODIUM CHLORIDE 0.9% 100 ML IVPB ONE; +ceFAZolin IN SWFI 2 GM/20 ML SYRINGE IVP ONE
[2018-09-14] MEDS ORDERED: LIDOCAINE 1% 20 ML VIAL (10MG/ML) FOR IV START INTRADERMA ONE (08:40)
[2018-09-14 09:00] LABS: Glucose,Whole Blood 146 mg/dL (75-99)
[2018-09-14] MEDS ORDERED: fentaNYL (PF) 50 MCG/ML 2 ML AMP IV ONE (09:01)
[2018-09-14] MEDS ORDERED: ROPIVACAINE 246.25 MG, EPINEPHrine 0.5 MG, KETOROLAC 30 MG, cloNIDine HCL/PF 80 MCG, WA... MISCELLANE ONE ×5 (09:36)
[2018-09-14] MEDS ORDERED: ROPIVACAINE 246.25 MG, EPINEPHrine 0.5 MG, KETOROLAC 30 MG, WATER FOR INJECTION,STERILE... MISCELLANE ONE ×4 (09:45)
[2018-09-14] MEDS ORDERED: fentaNYL (PF) 50 MCG/ML 2 ML AMP ONE (10:18)
[2018-09-14] MEDS ORDERED: PROPOFOL 10 MG/ML 20 ML VIAL IV ONE (10:18)
[2018-09-14] MEDS ORDERED: PHENYLEPHRINE-0.9% NACL SYG 1 MG/10 ML SYRINGE ONE (10:18)
[2018-09-14] MEDS ORDERED: MIDAZOLAM 2 MG/2 ML VIAL ONE (10:18)
[2018-09-14] MEDS ORDERED: TRANEXAMIC ACID 1,000 MG/10 ML VIAL ONE (10:18)
[2018-09-14] MEDS ORDERED: SODIUM CHLORIDE 0.9% 100 ML BAG ONE (10:18)
[2018-09-14] MEDS ORDERED: ceFAZolin 3,000 MG in SODIUM CHLORIDE 0.9% IRRIGATIO 3,000 ML IRRIGATION ONE (10:22)
[2018-09-14] MEDS ORDERED: ROPIVACAINE 1,100 MG, SODIUM CHLORIDE 0.9% 500 ML 330 ML MISCELLANE PRN ×2 (10:24)
--- NOTE | 2018-09-14 10:39 | P.ONQ ---
Anesthesiology Proc Note - PNB - Peripheral Nerve Block Performed Right Adductor Canal Infusion Time Out Performed: Yes Procedure Start Time: 09:25 Indication: Acute Post-Operative Pain Specifically requested for management of pain by DrMeenakshi: Jim Wood Sedation Type: Sedate with meaningful contact maintained Preparation: Sterile Prep Position: Supine Catheter Depth at Skin (cm): 9 Catheter: Indwelling Needle Types: Other (see comment) (Pajunk) Needle Size: 100mm (4") Needle Gauge: 18 Technique: Ultrasound Injectate: 0.5% Ropivacaine (see comment for volume) (20cc) Blood Aspirated: No Pain Paresthesia on Injection Noted: No Resistance on Injection: Normal Events: Uneventful and Well Tolerated
[2018-09-14] MEDS ORDERED: LACTATED RINGERS 1,000 ML IV ONE (11:43)
[2018-09-14] MEDS ORDERED: NALOXONE 0.4 MG/ML 1 ML VIAL IV PRN (12:22)
[2018-09-14] MEDS ORDERED: traMADol 50 MG TAB PO PRN (12:22)
[2018-09-14] MEDS ORDERED: ONDANSETRON 4 MG/2 ML VIAL IVP PRN (12:22)
[2018-09-14] MEDS ORDERED: HYDROmorphone 0.5 MG/0.5 ML SYRINGE IVP PRN ×2 (12:22)
[2018-09-14] MEDS ORDERED: HYDROcodone/APAP 5-325MG 1 EACH TAB PO PRN (12:22)
--- NOTE | 2018-09-14 12:22 | P.OP ---
Date of Procedure: 09/14/18 Preoperative Diagnosis: Right knee osteoarthritis Postoperative Diagnosis: Right knee osteoarthritis Procedure(s) Performed: Right total knee arthroplasty Implants: 1. Depuy attune size 7 cruciate-retaining cemented femur 2. Depuy attune size 8 fixed-bearing cemented tibial baseplate 3. Depuy attune 5 mm cruciate retaining polyethylene tibial insert 4. Depuy attune 41 mm all polyethylene cemented patella Anesthesia: regional (Adductor canal catheter), local, spinal Surgeon: Jim Wood [employer] Teacher #1: Rodriguez Rich Estimated Blood Loss (ml): 50 Pathology: other (Bone) Condition: stable Disposition: PACU Indications for Procedure: 63-year-old patient seen with symptomatic right knee osteoarthritis. After having treatment options discussed, he elected to proceed with total knee arthroplasty. Operative Findings: See description of procedure Description of Procedure: Patient was taken to the operative suite after having an adductor canal catheter placed by the department of anesthesia for postoperative pain management. Patient underwent a spinal anesthetic by the department of anesthesia. Patient was given preoperative IV intake antibiotics and TXA. A well-padded tourniquet was placed about the right lower extremity. The lower extremity was then prepped and draped in the normal sterile orthopedic fashion. The extremity was elevated, a tourniquet was insufflated to 300. A standard anterior incision was made sharply through skin. Dissection was taken down through the subcutaneous soft tissues down to the extensor mechanism. A medial arthrotomy was performed, patella was everted and knee was flexed. There was advanced osteoarthritis noted. I introduced my distal intramedullary femoral drill. I then introduced the distal femoral cutting jig. Lobo GURROLA secured the cutting jig with 2 pins. I held retractors in position while Lobo GURROLA performed the distal femoral resection through the guide area we now removed her distal femoral cutting guide. We now placed our 4-in-1 femoral cutting block and positioned and it was secured with 2 pins by Lobo GURROLA while I held the block in position. The distal femoral finishing was now completed. A proximal tibial cutting guide was positioned. I held the guide in the appropriate position with both hands well Lobo GURROLA inserted stabilizing pins into the guide. P roximal tibial cut was made. We now placed a trial femoral component into position, along with an appropriate size tibial tray and insert. We now took the knee through range of motion and had full extension good flexion and good overall soft tissue balance noted. The patella was everted and stabilized with 2 towel clips held by Lobo GURROLA while I performed a flush with patellar quad tendon utilizing a fresh sawblade. We templated the patella, appropriate drill holes were made. An appropriate trial patella was positioned, knee was taken through full range of motion with the patella tracking very nicely. The trial patella was removed. Drill holes were made through the femoral component. All trial components were removed after marking off the appropriate rotation of the tibia. Retractors were now positioned along the proximal tibia. An appropriate keel punch was made with the appropriate size tibial guide by myself on Lobo GURROLA assisted by holding retractors. At this point appropriate size implants were chosen and opened. The joint was irrigated copiously with pulse lavage mechanical irrigation. The posterior capsule was infiltrated with local analgesic. The wound was irrigated with pulse lavage mechanical irrigation. We mixed antibiotic methylmethacrylate. We placed the knee into flexion. We placed multiple retractors assisted by Lobo GURROLA to expose the proximal tibia. Once the methyl methacrylate was ready, the tibial component was cemented into place removing any excess methylmethacrylate form by both myself and Lobo GURROLA. The femoral component was cemented into place removing the removing any excess methylmethacrylate performed by both myself and Lobo GURROLA. We then inserted the appropriate size polyethylene tibial insert. We made sure that it was locked into position. We took the knee into full extension, and then back in a flexion making sure we had removed any excess methylmethacrylate. The patellar component was then cemented down and secured with clamp. Excess methylmethacrylate removed. We kept the knee in full extension, patellar clamp in position until methylmethacrylate had hardened. Once it had hardened the patellar clamp was removed. The knee was taken through full range of motion. The patella tracked nicely. There was good soft tissue balancing. The tourniquet was now released. Additional hemostasis was achieved via electrocautery. A second gram of TXA was given. The wound again was irrigated with pulse lavage mechanical irrigation. The superficial soft tissues were infiltrated local analgesic. The extensor mechanism was repaired with Vicryl. We checked the repair with range of motion and it was stable. The subcutaneous soft tissues were repaired with Vicryl in layers. The skin was approximated with pernio/Dermabond. Sterile dressings were applied followed by loose web roll and Perfecto bandage. The patient was transferred to a bed, and taken to recovery in stable and satisfactory condition. Lobo GURROLA assisted with this complex procedure.
--- NOTE | 2018-09-14 13:12 | XR ---
EXAMINATION TYPE: XR knee limited RT DATE OF EXAM: 09/14/2018 COMPARISON: NONE TECHNIQUE: Two views submitted HISTORY: Post op FINDINGS: There is a prosthetic knee in near anatomic alignment. There is soft tissue edema and emphysema. IMPRESSION: 1. Postoperative change. Appears in near-anatomic alignment
[2018-09-14 13:16] LABS: Glucose,Whole Blood 256 mg/dL (75-99)
[2018-09-14] MEDS: LACTATED RINGERS 1,000 ML IV SCH ×2 (13:45→20:42)
[2018-09-14] MEDS ORDERED: ARTIFICIAL TEARS-HYPROMELLOSE DROPS 15 ML BTL BOTH EYES PRN (16:54)
[2018-09-14] MEDS: metFORMIN 500 MG TAB PO SCH (17:56)
[2018-09-14] MEDS: CARVEDILOL 12.5 MG TAB PO SCH (17:57)
--- NOTE | 2018-09-14 18:02 | P.CONS ---
History of Present Illness - History of Present Illness 63-year-old male is postoperative total right knee arthroplasty for right knee osteoarthritis. Patient has a history of insulin-dependent diabetes on Lantus and Victoza. History of hypertension and hyperlipidemia. Patient is resting in bed without complaint pain control Review of Systems Musculoskeletal: right: knee pain Past Medical History Past Medical History: Chest Pain / Angina, Diabetes Mellitus, GERD/Reflux, Hyperlipidemia, Hypertension, Musculoskeletal Disorder, Osteoarthritis (OA), Sleep Apnea/CPAP/BIPAP Additional Past Medical History / Comment(s): CHRONIC BACK PAIN. GOUT. Migraines in past, SEVERAL CONCUSSIONS IN HIS LIFE UPWARDS TO 8 D/T SPORTS OR WHILE IN THE [place]. BROKE LT HAND(SX), TINNITUS, STRESS TEST SUMMER 2015 WNL. NOT USING CPAP. FATTY LIVER. History of Any Multi-Drug Resistant Organisms: None Reported Past Surgical History: Back Surgery, Heart Catheterization, Orthopedic Surgery Additional Past Surgical History / Comment(s): 3 SPINAL SURG, LAST 07/29/13.EGD/COLONOSCOPY/POLYPECTOMY(BENIGN), LT HAND SX D/T BREAK, RT HAND INDEX FINGER SUTURED BACK TOGETHER. RK EYE SURGURY, LT KNEE ARTHROSCOPY, RT KNEE ARTHROSCOPY THEN 2ND SX RTBACL, PAIN PROCEDURES X3 BLOCKS DONE FOR BACK PAIN. LIVER BIOPSY. Past Anesthesia/Blood Transfusion Reactions: No Reported Reaction Past Psychological History: Anxiety, Depression Additional Psychological History / Comment(s): PT LIVES WITH HIS AND 1 DOG"ALPHONSO". USES CANE WHEN INSIDE OR AN ELECTRIC SCOOTER LONG DISTANCE. SERVED IN THE [employer] X 2 TOURS. 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 NO OUTSIDE SERVICES Smoking Status: Former smoker Past Alcohol Use History: None Reported, Occasional Additional Past Alcohol Use History / Comment(s): STARTED SMOKING AT AGE 21, 2 - 04/29 PPD, QUIT -2016, restarted and quit again in 07/13. NO ALCOHOL SINCE 03/2018. Past Drug Use History: None Reported - Past Family History Father Family Medical History: Asthma, Cancer, Coronary Artery Disease (CAD), CVA/TIA, Dementia, Hyperlipidemia, Hypertension, Osteoarthritis (OA) Additional Family Medical History / Comment(s): [employer]PASS, O2 DEPENDANT, ALLERGIES/SEASONAL. Spinal cancer with mets. Mother Family Medical History: AFIB, CVA/TIA, Dementia, Seizure Disorder Additional Family Medical History / Comment(s): BRONCHIECTASIS,PARKINSONS Medications and Allergies Home Medications Medication Instructions Recorded Confirmed Type Pregabalin [Lyrica] 150 mg PO BID 02/19/16 09/14/18 History Artificial Tears-Hypromellose 1 drops BOTH EYES TID PRN 07/02/16 09/14/18 History [Artificial Tear Drops] Multivitamins, Thera [Multivitamin 1 tab PO DAILY 07/02/16 09/14/18 History (formulary)] metFORMIN HCL [Glucophage] 1,000 mg PO BID #120 tab 02/08/17 09/14/18 Rx Escitalopram [Lexapro] 20 mg PO QAM 08/08/17 09/14/18 History Losartan Potassium 50 mg PO BID 08/08/17 09/14/18 History Liraglutide [Victoza 2-Selvin] 1.8 mg SQ DAILY 09/15/17 09/14/18 History Aspirin [Adult Low Dose Aspirin EC] 162 mg PO DAILY 09/08/18 09/14/18 History Ferrous Sulfate [Feosol] 325 mg PO DAILY 09/08/18 09/14/18 History Insulin Glargine [Lantus] 35 unit SQ DAILY 09/08/18 09/14/18 History Pantoprazole Sodium [Protonix] 40 mg PO DAILY 09/08/18 09/14/18 History Carvedilol 12.5 mg PO BID 09/14/18 09/14/18 History Allergies Allergy/AdvReac Type Severity Reaction Status Date / Time Sulfa (Sulfonamide Allergy Unknown Verified 09/14/18 13:55 Antibiotics) Childhood Physical Exam Vitals: Vital Signs Temp Pulse Pulse Resp BP BP Pulse Ox 09/14/18 15:30 95 115/69 09/14/18 15:15 100 146/77 09/14/18 15:00 100 129/75 09/14/18 14:45 95 118/69 09/14/18 14:30 91 133/75 09/14/18 14:15 86 125/72 09/14/18 14:00 85 155/91 09/14/18 13:45 86 125/84 95 09/14/18 13:30 86 16 125/84 95 09/14/18 13:19 85 16 98/59 95 09/14/18 13:08 85 16 107/64 96 09/14/18 12:54 87 16 125/60 94 L 09/14/18 12:39 97.9 F 86 16 110/60 94 L 09/14/18 08:45 97 F L 103 H 16 136/74 97 Intake and Output 09/14/18 09/14/18 09/14/18 06:59 14:59 22:59 Intake Total 1301 Output Total 50 Balance 1251 Intake: IV 1301 Output: Estimated Blood Loss 50 - Constitutional General appearance: mild distress, obese - EENT Eyes: PERRLA Ears: bilateral: normal - Neck Neck: normal ROM - Respiratory Respiratory: bilateral: CTA - Cardiovascular Rhythm: regular - Gastrointestinal General gastrointestinal: soft - Integumentary Integumentary: normal - Neurologic Neurologic: CNII-XII intact - Psychiatric Psychiatric: A&O x's 3, appropriate affect, intact judgment & insight Results Labs: Abnormal Lab Results - Last 24 Hours (Table) 09/14/18 09/14/18 Range/Units 08:41 13:06 POC Glucose (mg/dL) 146 H 256 H (75-99) mg/dL Assessment and Plan Plan: Assessment Right knee osteoarthritis post right total knee arthroplasty Insulin-dependent diabetes type 2 Hypertension Hyperlipidemia GERD Sleep apnea with CPAP Plan Home medications reordered we'll monitor blood pressure and diabetes
[2018-09-14] MEDS: SENNOSIDES-DOCUSATE SODIUM 1 EACH TAB PO SCH (20:35)
[2018-09-14] MEDS: ENOXAPARIN 30 MG/0.3 ML SYRINGE SQ SCH (20:35)
[2018-09-14] MEDS: ceFAZolin IN SWFI 2 GM/20 ML SYRINGE IVP SCH (20:36)
[2018-09-14] MEDS: PREGABALIN 75 MG CAP PO SCH (20:36)
[2018-09-14] MEDS: LOSARTAN 50 MG TAB PO SCH (20:36)
[2018-09-14 20:43] LABS: Glucose,Whole Blood 373 mg/dL (75-99)
[2018-09-14] MEDS: INSULIN ASPART (NovoLOG) 100 UNIT/ML VIAL SQ SCH (21:24)
[2018-09-15] MEDS: HYDROcodone/APAP 5-325MG 1 EACH TAB PO PRN ×2 (00:44→07:52)
[2018-09-15] MEDS: ceFAZolin IN SWFI 2 GM/20 ML SYRINGE IVP SCH (03:11)
[2018-09-15] MEDS: HYDROmorphone 1 MG/ML 1 ML SYRINGE IVP PRN ×2 (04:36→22:30)
[2018-09-15 07:31] LABS: Glucose,Whole Blood 169 mg/dL (75-99)
[2018-09-15 07:49] LABS: Basophils % (A) 0 %; Eosinophils # (A) 0.1 k/uL (0-0.7); Eosinophils % (A) 1 %; HCT 32.4 % (39.0-53.0); HGB 10.8 gm/dL (13.0-17.5); Lymphocytes # (A) 2.9 k/uL (1.0-4.8); Lymphocytes % (A) 27 %; MCH 28.8 pg (25.0-35.0); MCHC 33.4 g/dL (31.0-37.0); MCV 86.1 fL (80.0-100.0); Mean Platelet Volume 8.6; Monocytes # (A) 0.7 k/uL (0-1.0); Monocytes % (A) 6 %; Neutrophils # (A) 6.9 k/uL (1.3-7.7); Neutrophils % (A) 64 %; Platelet Count 198 k/uL (150-450); RBC 3.76 m/uL (4.30-5.90); RDW 14.4 % (11.5-15.5); WBC 10.8 k/uL (3.8-10.6)
[2018-09-15] MEDS: MULTIVITAMINS, THERA 1 EACH TAB PO SCH (07:51)
[2018-09-15] MEDS: PREGABALIN 75 MG CAP PO SCH ×2 (07:51→21:01)
[2018-09-15] MEDS: metFORMIN 500 MG TAB PO SCH ×2 (07:51→17:31)
[2018-09-15] MEDS: LOSARTAN 50 MG TAB PO SCH (07:52)
[2018-09-15] MEDS: FERROUS SULFATE 325 MG TAB PO SCH (07:52)
[2018-09-15] MEDS: ESCITALOPRAM 20 MG TAB PO SCH (07:52)
[2018-09-15] MEDS: PANTOPRAZOLE 40 MG TABLET PO SCH (07:52)
[2018-09-15] MEDS: CARVEDILOL 12.5 MG TAB PO SCH (07:52)
[2018-09-15] MEDS: ENOXAPARIN 30 MG/0.3 ML SYRINGE SQ SCH ×2 (07:53→21:02)
[2018-09-15] MEDS: INSULIN ASPART (NovoLOG) 100 UNIT/ML VIAL SQ SCH ×4 (07:53→21:01)
[2018-09-15] MEDS: INSULIN DETEMIR (LEVEMIR) 100 UNIT/ML SYR SQ SCH (07:54)
[2018-09-15 08:04] LABS: ALT 64 U/L (21-72); AST 47 U/L (17-59); Albumin 4.4 g/dL (3.5-5.0); Alkaline Phosphatase 54 U/L (38-126); Anion Gap 11 mmol/L; Blood Urea Nitrogen 17 mg/dL (9-20); Carbon Dioxide 25 mmol/L (22-30); Chloride 102 mmol/L (98-107); Glucose 149 mg/dL (74-99); Potassium 4.3 mmol/L (3.5-5.1); Sodium 138 mmol/L (137-145); Total Bilirubin 0.5 mg/dL (0.2-1.3); Total Protein 6.7 g/dL (6.3-8.2)
[2018-09-15] MEDS: LACTATED RINGERS 1,000 ML IV SCH ×2 (09:51→18:57)
--- NOTE | 2018-09-15 10:40 | P.PN ---
Progress Note - Text 09/15 635am 63-year-old male status post total knee replacement by Dr. Wood. Patient has an On-Q pump for postop pain control with the solution running at 8 mL an hour patient had a VAS of 4-5 at rest. Plan to continue On-Q pump infusion
[2018-09-15 11:45] LABS: Glucose,Whole Blood 174 mg/dL (75-99)
--- NOTE | 2018-09-15 12:15 | P.PN ---
Subjective Patient is sitting in chair at bedside. States he is been doing physical therapy to knee. Monitoring diabetes on insulin scale Objective - Vital Signs Vital signs: Vital Signs Temp 98 F 09/15/18 07:00 Pulse 12 L 09/15/18 07:00 Resp 12 09/15/18 07:00 BP 135/80 09/15/18 07:00 Pulse Ox 96 09/15/18 07:00 Intake & Output 09/14/18 09/15/18 09/15/18 18:59 06:59 18:59 Intake Total 1301 1070 Output Total 50 Balance 1251 1070 Intake: IV 1301 Oral 1070 Output: Estimated Blood Loss 50 Other: # Voids 1 - Constitutional General appearance: Present: mild distress - EENT Eyes: Present: PERRLA Ears: bilateral: normal - Neck Neck: Present: normal ROM - Respiratory Respiratory: bilateral: CTA - Cardiovascular Rhythm: regular - Gastrointestinal General gastrointestinal: Present: soft - Integumentary Integumentary: Present: normal - Neurologic Neurologic: Present: CNII-XII intact - Psychiatric Psychiatric: Present: A&O x's 3, appropriate affect, intact judgment & insight - Labs CBC & Chem 7: 09/15/18 06:46 09/15/18 06:46 Labs: Abnormal Lab Results - Last 24 Hours (Table) 09/14/18 09/14/18 09/15/18 Range/Units 13:06 20:42 06:46 WBC 10.8 H (3.8-10.6) k/uL RBC 3.76 L (4.30-5.90) m/uL Hgb 10.8 L (13.0-17.5) gm/dL Hct 32.4 L (39.0-53.0) % Glucose (74-99) mg/dL POC Glucose (mg/dL) 256 H 373 H (75-99) mg/dL 09/15/18 09/15/18 09/15/18 Range/Units 06:46 07:25 11:42 WBC (3.8-10.6) k/uL RBC (4.30-5.90) m/uL Hgb (13.0-17.5) gm/dL Hct (39.0-53.0) % Glucose 149 H (74-99) mg/dL POC Glucose (mg/dL) 169 H 174 H (75-99) mg/dL Assessment and Plan Plan: Assessment Right knee osteoarthritis post right total knee arthroplasty Diabetes insulin-dependent Hypertension Hyperlipidemia GERD Sleep apnea with CPAP Plan Patient medically stable for discharge home
[2018-09-15] MEDS: HYDROcodone/APAP 7.5-325MG 1 EACH TAB PO PRN (13:13)
--- NOTE | 2018-09-15 16:02 | P.PN ---
Subjective Progress Note Date: 09/15/18 Principal diagnosis: Status post right total knee arthroplasty Patient evaluated at bedside today in a few different occasions. Patient does admit to increase in pain. He has been ambulating well. Denies any chest pain or shortness of breath Objective - Vital Signs Vital signs: Vital Signs Temp 98.0 F 09/15/18 13:20 Pulse 97 09/15/18 13:20 Resp 12 09/15/18 07:00 BP 107/63 09/15/18 13:46 Pulse Ox 94 L 09/15/18 13:20 Intake & Output 09/14/18 09/15/18 09/15/18 18:59 06:59 18:59 Intake Total 1301 1070 Output Total 50 Balance 1251 1070 Intake: IV 1301 Oral 1070 Output: Estimated Blood Loss 50 Other: # Voids 1 2 - Exam Right lower extremity: Incision is clean, dry, and intact. The exofin fusion tape is in good condition. There is minimal soft tissue swelling and ecchymosis surrounding the medial and lateral aspects of the incision. Calf is soft, no tenderness with palpation. Plantar flexion, dorsiflexion, EHL, FHL are intact. Sensory exam to light touch throughout the extremity is intact, dorsal pedis pulses 2+. - Labs CBC & Chem 7: 09/15/18 06:46 09/15/18 06:46 Labs: Abnormal Lab Results - Last 24 Hours (Table) 09/14/18 09/15/18 09/15/18 Range/Units 20:42 06:46 06:46 WBC 10.8 H (3.8-10.6) k/uL RBC 3.76 L (4.30-5.90) m/uL Hgb 10.8 L (13.0-17.5) gm/dL Hct 32.4 L (39.0-53.0) % Glucose 149 H (74-99) mg/dL POC Glucose (mg/dL) 373 H (75-99) mg/dL 09/15/18 09/15/18 Range/Units 07:25 11:42 WBC (3.8-10.6) k/uL RBC (4.30-5.90) m/uL Hgb (13.0-17.5) gm/dL Hct (39.0-53.0) % Glucose (74-99) mg/dL POC Glucose (mg/dL) 169 H 174 H (75-99) mg/dL Assessment and Plan Plan: Assessment: Postoperative day #1 status post right total knee arthroplasty Plan: Pain control, we'll increase [place] to 7.5 mg/325 mg GI and DVT prophylaxis, continue current medication Wound care instructions discussed Icing and elevating techniques discussed Continue work with physical therapy Medical recommendations Discharge planning: Due to patient's increase in pain, we'll keep 1 additional night for pain control. Inpatient status is man-made, plan for discharge home tomorrow Time with Patient: Less than 30
[2018-09-15 16:52] LABS: Glucose,Whole Blood 221 mg/dL (75-99)
[2018-09-15] MEDS: HYDROcodone/APAP 10-325MG 1 EACH TAB PO PRN (19:08)
[2018-09-15 20:53] LABS: Glucose,Whole Blood 240 mg/dL (75-99)
[2018-09-15] MEDS: SENNOSIDES-DOCUSATE SODIUM 1 EACH TAB PO SCH (21:01)
[2018-09-16] MEDS: HYDROcodone/APAP 10-325MG 1 EACH TAB PO PRN ×4 (01:29→20:04)
[2018-09-16] MEDS: LOSARTAN 50 MG TAB PO SCH ×3 (02:30→20:20)
[2018-09-16] MEDS: LACTATED RINGERS 1,000 ML IV SCH ×2 (03:58→14:49)
[2018-09-16 07:06] LABS: Glucose,Whole Blood 204 mg/dL (75-99)
[2018-09-16] MEDS: PANTOPRAZOLE 40 MG TABLET PO SCH (07:37)
[2018-09-16] MEDS: PREGABALIN 75 MG CAP PO SCH ×2 (07:37→20:20)
[2018-09-16] MEDS: metFORMIN 500 MG TAB PO SCH ×2 (07:37→17:41)
[2018-09-16] MEDS: ESCITALOPRAM 20 MG TAB PO SCH (07:38)
[2018-09-16] MEDS: FERROUS SULFATE 325 MG TAB PO SCH (07:38)
[2018-09-16] MEDS: MULTIVITAMINS, THERA 1 EACH TAB PO SCH (07:38)
[2018-09-16] MEDS: CARVEDILOL 12.5 MG TAB PO SCH ×2 (07:38→17:41)
[2018-09-16] MEDS: INSULIN DETEMIR (LEVEMIR) 100 UNIT/ML SYR SQ SCH (07:38)
[2018-09-16] MEDS: ENOXAPARIN 30 MG/0.3 ML SYRINGE SQ SCH ×2 (07:38→20:20)
[2018-09-16] MEDS: INSULIN ASPART (NovoLOG) 100 UNIT/ML VIAL SQ SCH ×4 (07:39→20:20)
--- NOTE | 2018-09-16 10:38 | P.PN ---
Subjective Patient complains of increased pain to knee. Noted increased girth to right calf. Had message to orthopedics for possible ultrasound Of calf. Patient otherwise stable Objective - Vital Signs Vital signs: Vital Signs Temp 98.1 F 09/16/18 07:22 Pulse 83 09/16/18 07:22 Resp 18 09/16/18 07:22 BP 110/66 09/16/18 07:22 Pulse Ox 94 L 09/16/18 07:22 Intake & Output 09/15/18 09/16/18 09/16/18 18:59 06:59 18:59 Intake Total 840 Output Total 475 Balance 365 Intake: Oral 840 Output: Urine 475 Other: # Voids 2 2 - Constitutional General appearance: Present: mild distress - EENT Eyes: Present: PERRLA - Respiratory Respiratory: bilateral: CTA - Cardiovascular Rhythm: regular - Peripheral edema leg Peripheral Edema: right: 3+ - Gastrointestinal General gastrointestinal: Present: soft - Integumentary Integumentary: Present: normal - Psychiatric Psychiatric: Present: A&O x's 3, appropriate affect, intact judgment & insight - Labs CBC & Chem 7: 09/15/18 06:46 09/15/18 06:46 Labs: Abnormal Lab Results - Last 24 Hours (Table) 09/15/18 09/15/18 09/15/18 Range/Units 11:42 16:51 20:52 POC Glucose (mg/dL) 174 H 221 H 240 H (75-99) mg/dL 09/16/18 Range/Units 07:04 POC Glucose (mg/dL) 204 H (75-99) mg/dL Assessment and Plan Plan: Assessment Right knee osteoarthritis post total knee arthroplasty Edema right lower extremity Insulin-dependent diabetes Hypertension Hyperlipidemia GERD Sleep apnea with CPAP Plan Noted increased girth to right calf message for orthopedics to consider ultrasound Otherwise medically stable Being held inpatient until of pain controlled
[2018-09-16 11:39] LABS: Glucose,Whole Blood 184 mg/dL (75-99)
--- NOTE | 2018-09-16 11:56 | US ---
EXAMINATION TYPE: US venous doppler duplex LE RT DATE OF EXAM: 09/16/2018 11:43 AM COMPARISON: NONE CLINICAL HISTORY: calf swelling, s/p right tka. swelling, TKR on Friday. SIDE PERFORMED: Right TECHNIQUE: The lower extremity deep venous system is examined utilizing real time linear array sonog josé luis with graded compression, doppler sonography and color-flow sonography. VESSELS IMAGED: External Iliac Vein (EIV) Common Femoral Vein Deep Femoral Vein Greater Saphenous Vein * Femoral Vein Popliteal Vein Small Saphenous Vein *- not well visualized Proximal Calf Veins (* superficial vessels) Suboptimal visualization due to edema, edema channels are present within the leg. Right Leg: Negative for DVT There is normal flow, compressibility, vascular waveforms. IMPRESSION: Exam is somewhat limited. No evident deep venous thrombosis at or above the right knee , follow-up as indicated.
--- NOTE | 2018-09-16 15:54 | XR ---
Limited right knee HISTORY: Status post right knee arthroplasty 2 views of the right knee Correlation prior exam 09/14/2018 Patient is status post right knee arthroplasty. There is anatomic alignment and soft tissue swelling. Subcutaneous emphysema has improved in the interval. Question changes of prior anterior cruciate lig ament repair. Small ossific densities are present in the suprapatellar region which may be postoperat raquel. IMPRESSION: Extensive soft tissue swelling. Postop changes.
[2018-09-16] MEDS: HYDROmorphone 1 MG/ML 1 ML SYRINGE IVP PRN ×2 (16:07→23:30)
[2018-09-16 16:48] LABS: Glucose,Whole Blood 190 mg/dL (75-99)
[2018-09-16 20:16] LABS: Glucose,Whole Blood 202 mg/dL (75-99)
[2018-09-16] MEDS: SENNOSIDES-DOCUSATE SODIUM 1 EACH TAB PO SCH (20:21)
[2018-09-17] MEDS: HYDROcodone/APAP 10-325MG 1 EACH TAB PO PRN ×2 (02:17→14:12)
[2018-09-17 04:01] VITALS: RESP 18
[2018-09-17 07:24] LABS: Glucose,Whole Blood 190 mg/dL (75-99)
[2018-09-17] MEDS: HYDROcodone/APAP 7.5-325MG 1 EACH TAB PO PRN (08:06)
[2018-09-17] MEDS: CARVEDILOL 12.5 MG TAB PO SCH (08:07)
[2018-09-17 08:10] LABS: Basophils % (A) 0 %; Eosinophils # (A) 0.2 k/uL (0-0.7); Eosinophils % (A) 2 %; HCT 25.8 % (39.0-53.0); Lymphocytes # (A) 2.5 k/uL (1.0-4.8); Lymphocytes % (A) 28 %; MCHC 33.6 g/dL (31.0-37.0); MCV 86.3 fL (80.0-100.0); Mean Platelet Volume 8.6; Monocytes # (A) 0.7 k/uL (0-1.0); Monocytes % (A) 7 %; Neutrophils # (A) 5.3 k/uL (1.3-7.7); Neutrophils % (A) 60 %; Platelet Count 155 k/uL (150-450); RBC 2.99 m/uL (4.30-5.90); RDW 14.2 % (11.5-15.5); WBC 8.9 k/uL (3.8-10.6)
[2018-09-17 08:14] LABS: HGB 8.7 gm/dL (13.0-17.5)
[2018-09-17] MEDS: LOSARTAN 50 MG TAB PO SCH (09:30)
[2018-09-17] MEDS: MULTIVITAMINS, THERA 1 EACH TAB PO SCH (09:30)
[2018-09-17] MEDS: ENOXAPARIN 30 MG/0.3 ML SYRINGE SQ SCH (09:30)
[2018-09-17] MEDS: PREGABALIN 75 MG CAP PO SCH (09:30)
[2018-09-17] MEDS: PANTOPRAZOLE 40 MG TABLET PO SCH (09:31)
[2018-09-17] MEDS: ESCITALOPRAM 20 MG TAB PO SCH (09:31)
[2018-09-17] MEDS: FERROUS SULFATE 325 MG TAB PO SCH (09:31)
[2018-09-17] MEDS: metFORMIN 500 MG TAB PO SCH (09:31)
[2018-09-17] MEDS: INSULIN DETEMIR (LEVEMIR) 100 UNIT/ML SYR SQ SCH (09:32)
--- NOTE | 2018-09-17 10:54 | P.PN ---
Subjective States improvement to knee pain. Negative for DVT. Otherwise stable medically cleared for discharge Objective - Vital Signs Vital signs: Vital Signs Temp 98.9 F 09/17/18 07:21 Pulse 99 09/17/18 07:21 Resp 18 09/17/18 01:10 BP 140/65 09/17/18 07:21 Pulse Ox 95 09/17/18 07:21 Intake & Output 09/16/18 09/17/18 09/17/18 18:59 06:59 18:59 Intake Total 600 Output Total 475 Balance 125 Intake: Oral 600 Output: Urine 475 Other: Voiding Method Urinal # Voids 275 3 - Constitutional General appearance: Present: mild distress - EENT Eyes: Present: PERRLA Ears: bilateral: normal - Neck Neck: Present: normal ROM - Respiratory Respiratory: negative: CTA - Cardiovascular Rhythm: regular - Gastrointestinal General gastrointestinal: Present: soft - Integumentary Integumentary Comment(s): Wound clean no discharge or redness - Neurologic Neurologic: Present: CNII-XII intact - Psychiatric Psychiatric: Present: A&O x's 3, appropriate affect, intact judgment & insight - Labs CBC & Chem 7: 09/17/18 07:37 09/15/18 06:46 Labs: Abnormal Lab Results - Last 24 Hours (Table) 09/16/18 09/16/18 09/16/18 Range/Units 11:38 16:45 20:15 RBC (4.30-5.90) m/uL Hgb (13.0-17.5) gm/dL Hct (39.0-53.0) % POC Glucose (mg/dL) 184 H 190 H 202 H (75-99) mg/dL 09/17/18 09/17/18 Range/Units 07:23 07:37 RBC 2.99 L (4.30-5.90) m/uL Hgb 8.7 L D (13.0-17.5) gm/dL Hct 25.8 L (39.0-53.0) % POC Glucose (mg/dL) 190 H (75-99) mg/dL Assessment and Plan Plan: Assessment Right knee osteoarthritis post right total knee arthroplasty Right leg edema Negative DVT Insulin-dependent diabetes type 2 History hypertension Hyperlipidemia GERD Sleep apnea with CPAP Plan Patient medically clear for discharge
[2018-09-17 11:50] LABS: Glucose,Whole Blood 171 mg/dL (75-99)
[2018-09-17] MEDS: INSULIN ASPART (NovoLOG) 100 UNIT/ML VIAL SQ SCH ×2 (12:40→13:13)
[2018-09-17 13:53] VITALS: BP 113/57; PULSE 92
--- NOTE | 2018-09-17 13:54 | P.PN ---
Subjective Progress Note Date: 09/17/18 Principal diagnosis: Status post right total knee arthroplasty Patient evaluated at bedside today in a few different occasions. He has been ambulating well. Denies any chest pain or shortness of breath Objective - Vital Signs Vital signs: Vital Signs Temp 98.9 F 09/17/18 07:21 Pulse 99 09/17/18 07:21 Resp 18 09/17/18 01:10 BP 140/65 09/17/18 07:21 Pulse Ox 95 09/17/18 07:21 Intake & Output 09/16/18 09/17/18 09/17/18 18:59 06:59 18:59 Intake Total 600 Output Total 475 Balance 125 Intake: Oral 600 Output: Urine 475 Other: Voiding Method Urinal # Voids 275 3 - Exam Right lower extremity: Incision is clean, dry, and intact. The exofin fusion tape is in good condition. There is minimal soft tissue swelling and ecchymosis surrounding the medial and lateral aspects of the incision. Calf is soft, no tenderness with palpation. Plantar flexion, dorsiflexion, EHL, FHL are intact. Sensory exam to light touch throughout the extremity is intact, dorsal pedis pulses 2+. - Labs CBC & Chem 7: 09/17/18 07:37 09/15/18 06:46 Labs: Abnormal Lab Results - Last 24 Hours (Table) 09/16/18 09/16/18 09/17/18 Range/Units 16:45 20:15 07:23 RBC (4.30-5.90) m/uL Hgb (13.0-17.5) gm/dL Hct (39.0-53.0) % POC Glucose (mg/dL) 190 H 202 H 190 H (75-99) mg/dL 09/17/18 09/17/18 Range/Units 07:37 11:48 RBC 2.99 L (4.30-5.90) m/uL Hgb 8.7 L D (13.0-17.5) gm/dL Hct 25.8 L (39.0-53.0) % POC Glucose (mg/dL) 171 H (75-99) mg/dL Assessment and Plan Plan: Assessment: Postoperative day #3 status post right total knee arthroplasty Plan: Pain control, discharge on [place] 10 mg/325 mg GI and DVT prophylaxis, Eliquis 2.5mb bid for 14 days Wound care instructions discussed Icing and elevating techniques discussed Continue work with physical therapy Medical recommendations Discharge planning: Likely discharged home today Time with Patient: Less than 30
--- NOTE | 2018-09-17 13:56 | P.DS ---
Providers Date of admission: 09/14/18 08:06 Expected date of discharge: 09/17/18 Attending physician: Jim Wood Consults: 09/14/18 12:22 Consult Physician Routine Consulting Provider: Claudio Kebede Consult Reason/Comments: Medical management Do you want consulting provider notified?: Yes Primary care physician: [facility] Hospital Course: Date of admission: 09/14/2018 Date of discharge: 09/17/2018 Admission diagnosis: Status post right total knee arthroplasty Discharge diagnosis: Same Attending physician: Dr. Wood Surgical procedures: Right total knee arthroplasty Brief history: Patient is a 63-year-old male with a history of with progressive primary right knee osteoarthritis. At this point patient has failed conservative treatment measures and has opted to proceed with a elective right total knee arthroplasty. Hospital course: Details of patient's surgery can be found in operative report. Patient tolerated the procedure well and was subsequently transported to orthopedic floor. Patient's orthopeidc and medical care was provided daily. Patient had daily laboratory tests performed for evaluation of overall blood counts. Patient had daily physical therapy to include strengthening range of motion as well as education with walker ambulation. Patient was treated with Lovenox for their postoperative DVT prophylaxis during their inpatient stay. Patient was noted to have a relatively uneventful postoperative course. Patient reported satisfactory pain control with oral pain medications by postoperative day 0. Patient showed satisfactory progress with physical therapy. Patient moved steadily through the program and had no difficulty meeting the goals by postoperative day 3. Given patient's otherwise satisfactory course and having met physical therapy goals, plan is to discharge patient home on postoperative day 3. Discharge condition/disposition: Patient will be discharged home in stable condition. Discharge medications: Instructions are given on resumption of patient's normal daily medications per primary care recommendation, in addition patient will be prescribed [place] 10 mg/325 mg, Colace 100 mg, Eliquis 2.5mg . Discharge instructions: 1. Wound care and infection precautions, keep incision dry and covered while showering, no lotions, creams, moisturizers. No soaking, tubs, pools, hottubs. Do not scrub over the incision. 2. Weight-bear as tolerated with walker / cane until follow-up. 3. Ice and elevate when necessary. Do not exceed 20 minutes per hour with ice pack. 4. Utilize compression sleeve until seen at first follow up appointment. 5. Visiting nursing care. 6. Home physical therapy including home CPM. 7. Pain meds and anticoagulants per prescription. 8. Pain medication has potential to cause constipation. Increase oral fluid and fiber intake. Contact primary care provider if you have not had a bowel movement within 48 hours after discharge 9. No anti-inflammatory medication until discussed at first post operative visit, this including Motrin, Aleve, Mobic, Diclofenac 10. Follow up in office at 2 weeks postop with Lobo Rich PA-C 11. Follow up with your primary care doctor 7-10 days after discharge. 12. Contact [facility] with any questions, . Procedures: Right total knee arthroplasty Patient Condition at Discharge: Good Plan - Discharge Summary Discharge Rx Participant: Yes New Discharge Prescriptions: New Docusate [Colace] 100 mg PO DAILY #30 capsule Apixaban [Eliquis] 2.5 mg PO BID #60 tab Hydrocodone/Acetaminophen [[place] 10-325] 1 - 2 each PO Q6H PRN #56 tab PRN Reason: Pain No Action Pregabalin [Lyrica] 150 mg PO BID Artificial Tears-Hypromellose [Artificial Tear Drops] 1 drops BOTH EYES TID PRN PRN Reason: Dry Eye(S) Multivitamins, Thera [Multivitamin (formulary)] 1 tab PO DAILY metFORMIN HCL [Glucophage] 1,000 mg PO BID #120 tab Escitalopram [Lexapro] 20 mg PO QAM Losartan Potassium 50 mg PO BID Liraglutide [Victoza 2-Selvin] 1.8 mg SQ DAILY Aspirin [Adult Low Dose Aspirin EC] 162 mg PO DAILY Ferrous Sulfate [Feosol] 325 mg PO DAILY Insulin Glargine [Lantus] 35 unit SQ DAILY Pantoprazole Sodium [Protonix] 40 mg PO DAILY Carvedilol 12.5 mg PO BID Discharge Medication List Pregabalin [Lyrica] 150 mg PO BID 02/19/16 [History] Artificial Tears-Hypromellose [Artificial Tear Drops] 1 drops BOTH EYES TID PRN 07/02/16 [History] Multivitamins, Thera [Multivitamin (formulary)] 1 tab PO DAILY 07/02/16 [History] metFORMIN HCL [Glucophage] 1,000 mg PO BID #120 tab 02/08/17 [Rx] Escitalopram [Lexapro] 20 mg PO QAM 08/08/17 [History] Losartan Potassium 50 mg PO BID 08/08/17 [History] Liraglutide [Victoza 2-Selvin] 1.8 mg SQ DAILY 09/15/17 [History] Aspirin [Adult Low Dose Aspirin EC] 162 mg PO DAILY 09/08/18 [History] Ferrous Sulfate [Feosol] 325 mg PO DAILY 09/08/18 [History] Insulin Glargine [Lantus] 35 unit SQ DAILY 09/08/18 [History] Pantoprazole Sodium [Protonix] 40 mg PO DAILY 09/08/18 [History] Carvedilol 12.5 mg PO BID 09/14/18 [History] Apixaban [Eliquis] 2.5 mg PO BID #60 tab 09/17/18 [Rx] Docusate [Colace] 100 mg PO DAILY #30 capsule 09/17/18 [Rx] Hydrocodone/Acetaminophen [[place] 10-325] 1 - 2 each PO Q6H PRN #56 tab 09/17/18 [Rx] Follow up Appointment(s)/Referral(s): Rodriguez Rich PAC [PHYSICIAN SEO MANAGER] - 2 Weeks [facility],Clinic [Primary Care Provider] - As Needed (Nicole the mental health case manager for [employer], is setting up Home Care for discharge. Please contact her with questions. [phone]) Activity/Diet/Wound Care/Special Instructions: Orthopedic Discharge Instructions: 1. Wound care and infection precautions, keep incision dry and covered while showering, no lotions, creams, moisturizers. No soaking, pools, hot tubs. Do not scrub over incision. 2. Weight-bear as tolerated with walker / cane until follow-up. 3. Ice and elevate when necessary. Do not exceed 20 minutes per hour with ice pack. 4. Utilize compression sleeve until seen at first follow up appointment. 5. Pain meds and anticoagulants per prescription. 6. Pain medication has potential to cause constipation. Increase oral fluid and fiber intake. Contact primary care provider if you have not had a bowel movement within 48 hours after discharge. 7. No anti-inflammatory medication until discussed at first post operative visit, this including Motrin, Aleve, Mobic, Diclofenac. 8. Follow up in office at 2 weeks postop with Lobo Rich PA-C 9. Follow up with your primary care doctor 7-10 days after discharge. 10. Contact [facility] with any questions, . Discharge Disposition: HOME WITH HOME HEALTH SERVICES
[2018-09-17 14:16] VITALS: TEMP 97.9
== END 2018-09-17 16:53 | disposition home health service (06) | DRG 470 ==
LOC: 2ORMAIN 08:06 → 4SSUR 12:57
PROVIDERS: ADMIT Orthopaedic Surgery; ATTEND Orthopaedic Surgery
PROC: 0SRC0J9 Replacement of Right Knee Joint with Synthetic Substitute, Cemented, Open Approach (ICD-10-PCS; principal; 2018-09-14 10:05)
DX: M17.11 Unilateral primary osteoarthritis, right knee (principal); E11.9 Type 2 diabetes mellitus without complications; K76.0 Fatty (change of) liver, not elsewhere classified; I10 Essential (primary) hypertension; E78.5 Hyperlipidemia, unspecified; G47.33 Obstructive sleep apnea (adult) (pediatric); F39 Unspecified mood [affective] disorder; G89.29 Other chronic pain; M54.9 Dorsalgia, unspecified; F32.9 Major depressive disorder, single episode, unspecified; F41.9 Anxiety disorder, unspecified; G43.909 Migraine, unspecified, not intractable, without status migrainosus; K21.9 Gastro-esophageal reflux disease without esophagitis; Z79.82 Long term (current) use of aspirin; Z79.4 Long term (current) use of insulin; Z79.899 Other long term (current) drug therapy; Z87.39 Personal history of other diseases of the musculoskeletal system and connective tissue; Z86.010 Personal history of colon polyps; Z98.890 Other specified postprocedural states; Z87.891 Personal history of nicotine dependence; Z99.89 Dependence on other enabling machines and devices; Z88.2 Allergy status to sulfonamides; Z82.5 Family history of asthma and other chronic lower respiratory diseases; Z82.49 Family history of ischemic heart disease and other diseases of the circulatory system; Z82.0 Family history of epilepsy and other diseases of the nervous system; Z81.8 Family history of other mental and behavioral disorders; Z82.3 Family history of stroke; Z83.49 Family history of other endocrine, nutritional and metabolic diseases; Z82.61 Family history of arthritis; Z80.8 Family history of malignant neoplasm of other organs or systems
CPT/HCPCS: 80053; 85025; 88300

== ENCOUNTER → 2018-09-22 | Outpatient (CLI) | payer SELFPAY ==
[2018-09-22 15:04] LABS: HCT 25.8 % (39.0-53.0); HGB 8.8 gm/dL (13.0-17.5); MCH 29.7 pg (25.0-35.0); MCHC 34.2 g/dL (31.0-37.0); MCV 86.8 fL (80.0-100.0); Mean Platelet Volume 7.9; RBC 2.97 m/uL (4.30-5.90); RDW 14.2 % (11.5-15.5); WBC 11.1 k/uL (3.8-10.6)
[2018-09-22 15:08] LABS: Platelet Count 368 k/uL (150-450)
[2018-09-22 18:29] LABS: Albumin 4.5 g/dL (3.80-4.90); Albumin/Globulin Ratio 2.14 (1.60-3.17); Anion Gap 10.1 mmol/L (4.00-12.00); Bilirubin, Conjugated 0.3 mg/dL (0.20-0.40); Bilirubin,Unconjugated 0.5 mg/dL; Calcium 9.3 mg/dL (8.7-10.3); Carbon Dioxide 26.9 mmol/L (21.6-31.8); Globulin 2.1 g/dL (1.6-3.3); Potassium 5.2 mmol/L (3.5-5.5); Total Bilirubin 0.8 mg/dL (0.3-1.2); Total Protein 6.6 g/dL (6.2-8.2)
== END ==
LOC: LABWHC1 13:04
DX: K75.81 Nonalcoholic steatohepatitis (NASH) (principal)
CPT/HCPCS: 36415; 80053; 82248; 85027

== ENCOUNTER → 2019-02-15 | Outpatient (CLI) | payer OTHER ==
--- NOTE | 2019-02-15 15:17 | CTL ---
EXAMINATION TYPE: CT Low Dose Lung DATE OF EXAM ORDERED: 02/15/2019 HISTORY: Personal history tobacco use. Lung cancer screening CT DLP: 103.[address] CTDI: 2.6 mGy Automated exposure control for dose reduction was used. SCREENING VISIT: Initial COMPARISON: None TECHNIQUE: Low dose computed tomography scan was performed through the chest at 1 mm thick sections a nd reconstructed images in the coronal plane at [address] DIAGNOSTIC QUALITY: Satisfactory FINDINGS: LUNG NODULES: None. LUNGS: COPD: Severity: None Fibrosis: Severity: None Lymph nodes: None Other findings: None RIGHT PLEURAL SPACE: Effusion: None Calcification: None Thickening: None Pneumothorax: None LEFT PLEURAL SPACE: Effusion: None Calcification: None Thickening: None Pneumothorax: None HEART: Heart Size: Normal Coronary calcification: None Pericardial effusion: None OTHER FINDINGS: Upper abdomen: Normal Bony thorax: Normal Supraclavicular region: Normal Other: Ascending thoracic aorta at the level the main pulmonary artery measures 3.4 cm. The main pul monary artery at the bifurcation measures 3.3 cm. IMPRESSION: No suspicious changes FOLLOW UP CT CHEST RECOMMENDATION: Follow-up low-dose CT chest per screening protocol in [address] LUNG RAD: 1
== END | disposition home or self-care (01) ==
LOC: RADCTMAIN 12:12
PROVIDERS: ATTEND Physician Assistant Medical
DX: Z13.83 Encounter for screening for respiratory disorder NEC (principal); Z87.891 Personal history of nicotine dependence

== ENCOUNTER → 2019-03-19 | Outpatient (CLI) | payer BC ==
[2019-03-19 19:40] LABS: African American GFR (CKD) 111.7 (60.0-200.0); Albumin/Globulin Ratio 2.78 (1.60-3.17); Anion Gap 11.9 mmol/L (4.00-12.00); BUN/Creat Ratio 26.25 Ratio (12.00-20.00); Calcium 10.3 mg/dL (8.7-10.3); Carbon Dioxide 27.1 mmol/L (21.6-31.8); Chol/HDL Ratio 2.69; Globulin 1.8 g/dL (1.6-3.3); LDL Cholesterol,Calculated 52.8 mg/dL (0.0-131.0); Non-African American GFR(CKD) 96.4 (60.0-200.0); Potassium 4.5 mmol/L (3.5-5.5); Total Bilirubin 0.3 mg/dL (0.2-1.2); Total Protein 6.8 g/dL (6.2-8.2); VLDL Calculation 38.2 mg/dL (5.00-40.00)
[2019-03-19 21:36] LABS: Hemoglobin A1C 7.6 % (4.0-6.0)
== END | disposition home or self-care (01) ==
LOC: LABWHC1 11:51
PROVIDERS: ATTEND Internal Medicine Endocrinology, Diabetes & Metabolism
DX: E11.65 Type 2 diabetes mellitus with hyperglycemia (principal)
CPT/HCPCS: 36415; 80053; 80061; 82043; 82570; 83036; 84443

== ENCOUNTER → 2019-06-24 | Outpatient (CLI) | payer MEDICARE ==
[2019-06-24 15:05] LABS: Basophils % (A) 0 %; Eosinophils # (A) 0.6 k/uL (0-0.7); Eosinophils % (A) 7 %; HCT 39.3 % (39.0-53.0); Lymphocytes # (A) 3.3 k/uL (1.0-4.8); Lymphocytes % (A) 41 %; MCH 28.3 pg (25.0-35.0); MCHC 33.1 g/dL (31.0-37.0); MCV 85.5 fL (80.0-100.0); Monocytes # (A) 0.4 k/uL (0-1.0); Monocytes % (A) 5 %; Neutrophils # (A) 3.6 k/uL (1.3-7.7); Neutrophils % (A) 44 %; Platelet Count 237 k/uL (150-450); RDW 13.7 % (11.5-15.5); WBC 8.2 k/uL (3.8-10.6)
[2019-06-24 15:13] LABS: Partial Thromboplastin Time 24.2 sec (22.0-30.0); Prothrombin Time 10.4 sec (9.0-12.0)
[2019-06-24 19:05] LABS: Non-African American GFR(CKD) 95.7 (60.0-200.0)
== END | disposition home or self-care (01) ==
LOC: LABWHC1 14:11
PROVIDERS: ATTEND Nurse Practitioner
DX: I67.1 Cerebral aneurysm, nonruptured (principal); D68.8 Other specified coagulation defects
CPT/HCPCS: 36415; 82565; 84520; 85025; 85610; 85730

== ENCOUNTER → 2019-10-05 | Outpatient (CLI) | payer MEDICARE ==
[2019-10-05 19:56] LABS: African American GFR (CKD) 105.7 (60.0-200.0); Albumin 4.9 g/dL (3.80-4.90); Albumin/Globulin Ratio 2.72 (1.60-3.17); Anion Gap 11.3 mmol/L (4.00-12.00); BUN/Creat Ratio 16.67 Ratio (12.00-20.00); Bilirubin, Conjugated 0.3 mg/dL (0.20-0.40); Bilirubin,Unconjugated 0.2 mg/dL; Calcium 9.2 mg/dL (8.7-10.3); Carbon Dioxide 22.7 mmol/L (21.6-31.8); Chol/HDL Ratio 2.97; Globulin 1.8 g/dL (1.6-3.3); LDL Cholesterol,Calculated 50.4 mg/dL (0.0-131.0); Non-African American GFR(CKD) 91.2 (60.0-200.0); Potassium 4.2 mmol/L (3.5-5.5); Total Bilirubin 0.5 mg/dL (0.2-1.2); Total Protein 6.7 g/dL (6.2-8.2); VLDL Calculation 22.6 mg/dL (5.00-40.00)
[2019-10-05 20:09] LABS: Urine Creatinine 257.6 mg/dL
[2019-10-05 21:16] LABS: Hemoglobin A1C 5.9 % (4.0-6.0)
== END | disposition home or self-care (01) ==
LOC: LABWHC1 09:59
PROVIDERS: ATTEND Internal Medicine Endocrinology, Diabetes & Metabolism
DX: E11.65 Type 2 diabetes mellitus with hyperglycemia (principal); K75.81 Nonalcoholic steatohepatitis (NASH)
CPT/HCPCS: 36415; 80053; 80061; 82043; 82248; 82570; 83036; 84443

== ENCOUNTER → 2020-01-13 | Outpatient (CLI) | payer MEDICARE ==
[2020-01-13 13:13] LABS: Basophils % (A) 0 %; Eosinophils # (A) 0.3 k/uL (0-0.7); Eosinophils % (A) 4 %; HCT 40.8 % (39.0-53.0); HGB 13.3 gm/dL (13.0-17.5); Lymphocytes # (A) 3.1 k/uL (1.0-4.8); Lymphocytes % (A) 41 %; MCH 28.4 pg (25.0-35.0); MCHC 32.6 g/dL (31.0-37.0); Mean Platelet Volume 8.2; Monocytes # (A) 0.4 k/uL (0-1.0); Monocytes % (A) 6 %; Neutrophils # (A) 3.4 k/uL (1.3-7.7); Neutrophils % (A) 46 %; Platelet Count 267 k/uL (150-450); RBC 4.69 m/uL (4.30-5.90); RDW 13.3 % (11.5-15.5); WBC 7.4 k/uL (3.8-10.6)
[2020-01-13 19:58] LABS: Erythrocyte Sedimentation Rate 12 mm/Hr (0-20)
[2020-01-13 20:34] LABS: C Reactive Protein <0.4 mg/dL (0.0-0.8); Rheumatoid Factor, Qnt 13 IU/mL (0-15); Uric Acid 7.9 mg/dL (3.7-8.7)
== END | disposition home or self-care (01) ==
LOC: LABWHC1 11:47
PROVIDERS: ATTEND Podiatrist Foot & Ankle Surgery
DX: B99.9 Unspecified infectious disease (principal); M19.90 Unspecified osteoarthritis, unspecified site; M10.9 Gout, unspecified
CPT/HCPCS: 36415; 84550; 85025; 85652; 86038; 86140; 86431

== ENCOUNTER → 2020-05-02 | Outpatient (CLI) | payer MEDICARE ==
[2020-05-02 21:20] LABS: Hemoglobin A1C 6.4 % (4.0-6.0)
[2020-05-02 21:49] LABS: African American GFR (CKD) 93.1 (60.0-200.0); Albumin 5.1 g/dL (3.80-4.90); Anion Gap 11.4 mmol/L (4.00-12.00); Bilirubin, Conjugated 0.2 mg/dL (0.20-0.40); Bilirubin,Unconjugated 0.2 mg/dL; Calcium 9.6 mg/dL (8.7-10.3); Carbon Dioxide 26.6 mmol/L (21.6-31.8); Chol/HDL Ratio 2.81; Globulin 1.7 g/dL (1.6-3.3); LDL Cholesterol,Calculated 58.6 mg/dL (0.0-131.0); Non-African American GFR(CKD) 80.3 (60.0-200.0); Potassium 4.6 mmol/L (3.5-5.5); Total Bilirubin 0.4 mg/dL (0.3-1.2); Total Protein 6.8 g/dL (6.2-8.2); VLDL Calculation 17.4 mg/dL (5.00-40.00)
== END | disposition home or self-care (01) ==
LOC: LABWHC1 12:00
PROVIDERS: ATTEND Internal Medicine Endocrinology, Diabetes & Metabolism
DX: E11.65 Type 2 diabetes mellitus with hyperglycemia (principal); K75.81 Nonalcoholic steatohepatitis (NASH)
CPT/HCPCS: 36415; 80053; 80061; 82248; 83036; 84443

== ENCOUNTER → 2020-07-31 | Outpatient (CLI) | payer OTHER ==
[2020-08-01 06:56] LABS: African American GFR (CKD) 74.1 (60.0-200.0); Albumin 5.4 g/dL (3.80-4.90); Albumin/Globulin Ratio 3.18 (1.60-3.17); Anion Gap 10.7 mmol/L (4.00-12.00); BUN/Creat Ratio 10.83 Ratio (12.00-20.00); Calcium 9.7 mg/dL (8.7-10.3); Carbon Dioxide 27.3 mmol/L (21.6-31.8); Globulin 1.7 g/dL (1.6-3.3); Potassium 4.6 mmol/L (3.5-5.5); Total Bilirubin 0.4 mg/dL (0.3-1.2); Total Protein 7.1 g/dL (6.2-8.2)
== END | disposition home or self-care (01) ==
LOC: LABWHC1 14:23
PROVIDERS: ATTEND Internal Medicine Endocrinology, Diabetes & Metabolism
DX: E11.65 Type 2 diabetes mellitus with hyperglycemia (principal)
CPT/HCPCS: 36415; 80053; 83036

== ENCOUNTER → 2020-07-31 | Outpatient (CLI) | payer OTHER | END | disposition home or self-care (01) | LOC: LABPAT 14:17 | PROVIDERS: ATTEND Orthopaedic Surgery | DX: Z01.812 Encounter for preprocedural laboratory examination (principal); M16.12 Unilateral primary osteoarthritis, left hip | CPT/HCPCS: 87070 ==

== ENCOUNTER → 2020-08-04 | Outpatient (CLI) | payer OTHER ==
--- NOTE | 2020-08-04 12:35 | XR ---
EXAMINATION TYPE: XR chest 2V DATE OF EXAM: 08/04/2020 COMPARISON: 02/08/2017 HISTORY: 65-year-old male Z01.818 encounter for preprocedural exam TECHNIQUE: Frontal and lateral views FINDINGS: The cardiomediastinal silhouette, aorta, and pulmonary vasculature are within normal limits. Mild zaki tral peribronchial cuffing. Mild hyperinflation. Otherwise, lungs and pleural spaces are clear. IMPRESSION: Some changes which suggest underlying COPD. Clinically correlate. Otherwise, no acute cardiopulmonary process.
== END | disposition home or self-care (01) ==
LOC: RADXRMAIN 12:02
PROVIDERS: ATTEND Family Medicine
DX: Z01.818 Encounter for other preprocedural examination (principal)
CPT/HCPCS: 71046

== ENCOUNTER 2020-08-07 08:05 | Day surgery (SDC) | payer MEDICARE, OTHER ==
[2020-08-04 09:47] VITALS: BMI 33.0
--- NOTE | 2020-08-06 11:21 | HP ---
HISTORY AND PHYSICAL DATE OF SURGERY: 08/07/2020 HISTORY OF PRESENT ILLNESS: Barry Nation is a 65-year-old patient seen with symptomatic left hip osteoarthritis. We discussed options for treatment. He elected to proceed with direct anterior left total hip arthroplasty. Consent regarding the procedure was obtained. Medical clearance provided by Dr. Kebede. Cardiac clearance was provided by Dr. Bradley. PAST MEDICAL HISTORY: Hypertension, hyperlipidemia, [id number] diabetes. PAST SURGICAL HISTORY: Lumbar spine surgery, knee arthroscopy. DAILY MEDICATIONS: Atorvastatin, carvedilol, losartan, metformin, pantoprazole, Victoza, vitamins. ALLERGIES: FENTANYL, METHADONE, SULFA, VIAGRA. SOCIAL HISTORY: He denies current tobacco use. PHYSICAL EXAMINATION: Evaluation of the left hip, he has limited range of motion with severe pain, diffuse tenderness about the hip girdle. Straight leg raise negative. Positive hip impingement sign. His distal neurovascular exam is intact. RADIOGRAPHS: Radiographs of the left hip reveal severe osteoarthritic changes. IMPRESSION: 1. Left hip osteoarthritis. 2. Hypertension. 3. Hyperlipidemia. 4. Luw-nujeeua-amarvlkdy diabetes. PLAN: Direct anterior left total hip arthroplasty. MMODL / IJN: [id number] /
[~2020-08-07 08:05] MED LIST changes: -ACETAMINOPHEN TAB 500 MG TAB PO ONE; +ACETAMINOPHEN TAB 500 MG TAB PO PRN; -DEXAMETHASONE SOD PHOSPHATE 10 MG/ML 1 ML VIAL IV ONE; +DEXAMETHASONE SOD PHOSPHATE 4 MG/ML 1 ML VIAL IV ONE; +LIDOCAINE 1% (10MG/ML) FOR IV START INTRADERMA PRN; -MELOXICAM 7.5 MG TAB PO ONE; +MELOXICAM 7.5 MG TAB PO PRN; +ROPIVACAINE/EPI/CLONIDINE/KET 50 ML SYRINGE MISCELLANE PRN; -SCOPOLAMINE 1.5MG/72HR PATCH TRANSDERM ONE; -TRANEXAMIC ACID 1,000 MG in SODIUM CHLORIDE 0.9% 100 ML IVPB ONE; +TRANEXAMIC ACID 1,000 MG in SODIUM CHLORIDE 0.9% 100 ML IVPB PRN; -ceFAZolin IN SWFI 2 GM/20 ML SYRINGE IVP ONE
[2020-08-07 09:26] LABS: Glucose,Whole Blood 110 mg/dL (75-99)
[2020-08-07] MEDS ORDERED: HYDROmorphone (PF) 1 MG/ML ONE (09:59)
[2020-08-07] MEDS ORDERED: SODIUM CHLORIDE 0.9% 100 ML BAG ONE (09:59)
[2020-08-07] MEDS ORDERED: TRANEXAMIC ACID 1,000 MG/10 ML VIAL ONE (09:59)
[2020-08-07] MEDS ORDERED: PROPOFOL 10 MG/ML 20 ML VIAL IV ONE (09:59)
[2020-08-07] MEDS ORDERED: NEOSTIGMINE 1 MG/ML 10 ML VIAL ONE (09:59)
[2020-08-07] MEDS ORDERED: GLYCOPYRROLATE 0.2 MG/ML 2 ML VIAL ONE (09:59)
[2020-08-07] MEDS ORDERED: fentaNYL (PF) 50 MCG/ML 2 ML AMP ONE (09:59)
[2020-08-07] MEDS ORDERED: SUCCINYLCHOLINE CHLORIDE 100 MG/5 ML SYR IV ONE (09:59)
[2020-08-07] MEDS ORDERED: ROCURONIUM 10 MG/ML (5 ML VIAL) IV ONE (09:59)
[2020-08-07] MEDS ORDERED: MIDAZOLAM 2 MG/2 ML VIAL ONE (09:59)
[2020-08-07] MEDS ORDERED: LIDOCAINE 1% INJ 10MG/ML (20 ML MDV) ONE (09:59)
[2020-08-07] MEDS ORDERED: ceFAZolin 3,000 MG in SODIUM CHLORIDE 0.9% IRRIGATIO 3,000 ML IRRIGATION ONE (10:29)
[2020-08-07] MEDS ORDERED: LACTATED RINGERS 1,000 ML IV ONE ×2 (11:20→11:40)
[2020-08-07] MEDS ORDERED: NALOXONE 0.4 MG/ML 1 ML VIAL IV PRN (11:40)
[2020-08-07] MEDS ORDERED: HYDROcodone/APAP 5-325MG 1 EACH TAB PO PRN ×2 (11:40)
[2020-08-07] MEDS ORDERED: HYDROmorphone 0.5 MG/0.5 ML SYRINGE IVP PRN ×2 (11:40)
[2020-08-07] MEDS ORDERED: ONDANSETRON 4 MG/2 ML VIAL IVP PRN (11:40)
[2020-08-07] MEDS ORDERED: HYDROmorphone 0.2 MG/1 ML SYRINGE IM PRN (11:40)
--- NOTE | 2020-08-07 11:40 | P.OP ---
Date of Procedure: 08/07/20 Preoperative Diagnosis: Left hip osteoarthritis Postoperative Diagnosis: Left hip osteoarthritis Procedure(s) Performed: Direct anterior left total hip arthroplasty Implants: 1. Depuy Corail KA with collar size 12 press-fit femoral stem 2. Depuy pinnacle 54 mm press-fit acetabular shell 3. Depuy pinnacle neutral polyethylene acetabular liner 36 mm ID 54 mm OD 4. Biolox delta ceramic femoral head +5 36 mm Anesthesia: KELSYA, local Surgeon: Jim Wood Superintendent Terminal #1: Can Roberts Estimated Blood Loss (ml): 250 Pathology: other (Femoral head) Condition: stable Disposition: PACU Indications for Procedure: 65-year-old gentleman seen with symptomatic left hip osteoarthritis. After treatment options were discussed, he elected to proceed with direct anterior left total hip arthroplasty. Operative Findings: See description of procedure Description of Procedure: The patient was taken to the operative suite. Patient underwent a general anesthetic by the department of anesthesia. Patient was then transferred to the [place] table. Patient was given preoperative IV antibiotics and TXA. Both lower extremities were placed in standard leg spars. The hip was then prepped and draped in the normal sterile orthopedic fashion. A standard anterior incision was made beginning 3 cm lateral and 1 cm distal to the ASIS extending 10 cm. Dissection was then carried down through the subcutaneous soft tissues down to the fascia overlying the tensor fascia rachel. An incision was now made through the fascia. Careful dissection was taken down exposing the tensor fascia rachel muscle. A Cobra retractor was now placed along the medial femoral neck and a second one along the lateral femoral neck. The venous circumflex vessels were now identified, cauterized and clipped. We identified the anterior hip capsule. An incision was made through the hip capsule along the lateral border. I performed a partial anterior capsulectomy. Retractors were now placed around the femoral neck itself. A femoral neck cut was now made with a sagittal saw. It was completed with an osteotome at the lateral neck area. The femoral head was now removed without difficulty. The extremity was now rotated to 45 of external rotation. It was locked in position. Residual labrum was now debrided out. Serial reaming was performed of the acetabulum while Huy GURROLA assisted holding an anterior retractor for exposure. Once we reached the appropriate size and a trial was position and fit nicely. The appropriate size was now chosen opened and made available. It was introduced into the acetabulum without difficulty. The C-arm/fluoroscopy was now brought into the operative field. We made sure we had a true AP pelvic view. We now under direct C- arm/fluoroscopy introduced into the acetabular component with appropriate version and inclination. I held the cup in appropriate position well Lobo GURROLA used a mallet to seat the acetabular component. I noted the component now to be well seated and stable. Acetabular cup introduce her was removed. The C-arm was pulled back. An appropriate liner was introduced and clicked into position. It was felt to be stable. At this point retractors were removed. The extremity was now placed into 120 external rotation with no traction. The leg was now dropped to the ground and adducted. Appropriate retractors were now positioned along the proximal femur. We also placed our femoral look into position. Additional capsular releasing was performed to gain access to the proximal femur. We now used a box osteotome. A canal finder was now utilized. Serial broaching was now performed with the assistance of Can GURROLA tapping the broaches down with a mallet while held the broach in appropriate rotation and position. This was done until we reached the appropriate size with good overall rotational stability. Appropriate calcar planing was performed. A trial head/neck was placed into position. The hip was now reduced. The C- arm/fluoroscopy was brought back into the operative field. I obtained an AP pelvis demonstrating reasonable leg length alignment the trial components appears stable. The C-arm/fluoroscopy was pulled back. Retractors were repositioned and the hip was dislocated. The leg was again taken down to the ground and adducted. Appropriate retractors were repositioned as well as the femoral hook. All trial components were removed. The femoral implant was opened along with the femoral head. The femoral implant was introduced on the appropriate handle into our pre-broached area. I held the component position while Can GURROLA used a mallet to seat the femoral component. The femoral component was now noted to be well seated and stable.. The femoral head was introduced with good positioning and fixation noted. Retractors were now removed. The hip was now reduced. There appeared be good positioning of the hip confirmed on intraoperative fluoroscopy. Spot films were obtained to document this. A second gram of TXA was given. The deep and superficial soft tissues were infiltrated with local analgesic. Bipolar cautery had been utilized intermittently through the procedure for hemostasis. The wound was irrigated copiously with pulse lavage mechanical irrigation. The fascia was repaired with Vicryl suture. The subcutaneous soft tissues were repaired in l bangura with Vicryl suture. The skin was approximated with pernio/Dermabond. Sterile dressings were applied. Patient was then awakened, transferred to a bed and taken to recovery in stable condition. Chanelle GURROLA assisted with the complex procedure.
--- NOTE | 2020-08-07 11:45 | FL ---
EXAMINATION TYPE: FL guidance operating room, XR Hip Limited LT DATE OF EXAM: 08/07/2020 CLINICAL HISTORY: Left hip pain and osteoarthritis. TECHNIQUE: Fluoroscopy. Limited intraoperative views left hip. COMPARISON: None. FINDINGS: Fluoroscopic guidance was provided during left hip replacement procedure performed by Dr. Wood. A total of 16 seconds of fluoroscopic time was utilized during the procedure and 1 spot i ntraoperative image is acquired. Single image acquired shows metallic hardware from total left hip arthroplasty satisfactory in positi on on frontal projection. IMPRESSION: As Above.
[2020-08-07] MEDS ORDERED: HYDROmorphone 0.2 MG/1 ML SYRINGE IVP PRN (11:47)
[2020-08-07 12:14] VITALS: TEMP 97.6
[2020-08-07 12:25] LABS: Glucose,Whole Blood 141 mg/dL (75-99)
[2020-08-07 13:35] VITALS: RESP 16
[2020-08-07] MEDS ORDERED: HYDROcodone/APAP 5-325MG 1 EACH TAB PO ONE (14:05)
[2020-08-07 16:26] VITALS: BP 127/71; PULSE 83
== END 2020-08-07 16:23 | disposition home health service (06) ==
LOC: OR 08:05
PROVIDERS: ATTEND Orthopaedic Surgery
DX: M16.12 Unilateral primary osteoarthritis, left hip (principal); E11.9 Type 2 diabetes mellitus without complications; E78.5 Hyperlipidemia, unspecified; E66.9 Obesity, unspecified; I10 Essential (primary) hypertension; I67.1 Cerebral aneurysm, nonruptured; F32.9 Major depressive disorder, single episode, unspecified; H91.90 Unspecified hearing loss, unspecified ear; M10.9 Gout, unspecified; E78.00 Pure hypercholesterolemia, unspecified; M81.0 Age-related osteoporosis without current pathological fracture; R00.0 Tachycardia, unspecified; K08.89 Other specified disorders of teeth and supporting structures; K21.9 Gastro-esophageal reflux disease without esophagitis; K75.81 Nonalcoholic steatohepatitis (NASH); Z20.822 Contact with and (suspected) exposure to COVID-19; Z88.5 Allergy status to narcotic agent; Z88.2 Allergy status to sulfonamides; Z88.8 Allergy status to other drugs, medicaments and biological substances; Z79.899 Other long term (current) drug therapy; Z79.82 Long term (current) use of aspirin; Z79.4 Long term (current) use of insulin; Z86.69 Personal history of other diseases of the nervous system and sense organs; Z87.09 Personal history of other diseases of the respiratory system; Z87.891 Personal history of nicotine dependence; Z98.890 Other specified postprocedural states; Z86.19 Personal history of other infectious and parasitic diseases; Z97.3 Presence of spectacles and contact lenses; Z68.34 Body mass index [BMI] 34.0-34.9, adult; Z98.1 Arthrodesis status
CPT/HCPCS: 97110; 97161; 88300; 87635; 73501; 27130; C1776; J2250; J1100; J2710; J0690 ×2; J2405; J2001; J3010; J1170; J0330; J2704; 86850; 86900; 86901

== ENCOUNTER → 2020-11-10 | Outpatient (CLI) | payer OTHER ==
[2020-11-11 00:19] LABS: Hemoglobin A1C 5.4 % (4.0-6.0)
[2020-11-11 16:01] LABS: Albumin 4.9 g/dL (3.80-4.90); Albumin/Globulin Ratio 2.23 (1.60-3.17); BUN/Creat Ratio 8.89 Ratio (12.00-20.00); Calcium 9.5 mg/dL (8.7-10.3); Chol/HDL Ratio 2.33; Globulin 2.2 g/dL (1.6-3.3); LDL Cholesterol,Calculated 46.2 mg/dL (0.0-131.0); Non-African American GFR(CKD) 90.6 (60.0-200.0); Potassium 4.7 mmol/L (3.5-5.5); Total Bilirubin 0.3 mg/dL (0.3-1.2); Total Protein 7.1 g/dL (6.2-8.2); VLDL Calculation 14.8 mg/dL (5.00-40.00)
== END | disposition home or self-care (01) ==
LOC: LABWHC1 14:34
PROVIDERS: ATTEND Internal Medicine Endocrinology, Diabetes & Metabolism
DX: E11.65 Type 2 diabetes mellitus with hyperglycemia (principal)
CPT/HCPCS: 36415; 80053; 80061; 82043; 82570; 83036; 84443

== ENCOUNTER → 2020-12-19 | Outpatient (CLI) | payer OTHER ==
[2020-12-19 20:17] LABS: Chol/HDL Ratio 2.87; LDL Cholesterol,Calculated 60.2 mg/dL (0.0-131.0); VLDL Calculation 12.8 mg/dL (5.00-40.00)
== END | disposition home or self-care (01) ==
LOC: LABWHC1 10:03
PROVIDERS: ATTEND Internal Medicine Clinical Cardiac Electrophysiology
DX: E11.9 Type 2 diabetes mellitus without complications (principal); E78.5 Hyperlipidemia, unspecified
CPT/HCPCS: 36415; 80061

== ENCOUNTER → 2021-01-04 | Outpatient (CLI) | payer OTHER ==
--- NOTE | 2021-01-04 15:53 | XR ---
EXAMINATION TYPE: XR chest 2V DATE OF EXAM: 01/04/2021 COMPARISON: 08/04/2020 HISTORY: 65-year-old male M16.9, preoperative exam TECHNIQUE: Frontal and lateral views FINDINGS: The cardiomediastinal silhouette, aorta, and pulmonary vasculature are within normal limits. Mild hyp erinflation. Otherwise, lungs and pleural spaces are clear. IMPRESSION: Mild hyperinflation could reflect depth of inspiration or underlying emphysema. Clinically correlate. Otherwise, no acute cardiopulmonary process.
== END | disposition home or self-care (01) ==
LOC: LABPAT 11:30
PROVIDERS: ATTEND Nurse Practitioner
DX: Z01.818 Encounter for other preprocedural examination (principal); M16.9 Osteoarthritis of hip, unspecified; J98.4 Other disorders of lung
CPT/HCPCS: 71046; 87070

== ENCOUNTER 2021-01-29 11:33 | Day surgery (SDC) | payer OTHER ==
[2021-01-24 13:30] VITALS: BMI 30.8
--- NOTE | 2021-01-28 16:28 | HP ---
HISTORY AND PHYSICAL HISTORY: Barry Nation is a 65-year-old gentleman seen with symptomatic right hip osteoarthritis. We discussed options for treatment and he elected to proceed with a direct anterior right total hip arthroplasty. Consent was obtained. Medical clearance was provided by Dr. Claudio Kebede. PAST MEDICAL HISTORY: Hypertension, insulin-dependent diabetes, hyperlipidemia. PAST SURGICAL HISTORY: Right knee arthroscopy, lumbar spine surgery, left total hip arthroplasty. MEDICATIONS: Insulin, aspirin, atorvastatin, carvedilol, losartan, metformin, pantoprazole, Victoza. ALLERGIES: Fentanyl, methadone, sulfa, Viagra. SOCIAL HISTORY: He denies current tobacco use. PHYSICAL EXAMINATION: Evaluation of the right hip, he has very limited range of motion with severe pain, diffuse tenderness about the hip girdle. Positive impingement sign. Straight leg raise negative. His distal neurovascular exam is intact. RADIOGRAPHS: Radiographs of the right hip reveals severe osteoarthritic changes. IMPRESSION: 1. Right hip osteoarthritis. 2. Hypertension. 3. Hyperlipidemia. 4. Insulin-dependent diabetes. PLAN: Direct anterior right total hip arthroplasty. MMODL / IJN: [id number] /
[~2021-01-29 11:33] MED LIST changes: -HYDROmorphone 0.5 MG/0.5 ML SYRINGE IVP PRN; -MIDAZOLAM 2 MG/2 ML VIAL IV PRN; +ONDANSETRON 4 MG/2 ML VIAL IVP PRN
[2021-01-29 12:39] LABS: Glucose,Whole Blood 98 mg/dL (75-99)
[2021-01-29] MEDS ORDERED: ACETAMINOPHEN TAB 500 MG TAB ONE (12:47)
[2021-01-29] MEDS ORDERED: NEOSTIGMINE 1 MG/ML 10 ML VIAL ONE (13:15)
[2021-01-29] MEDS ORDERED: GLYCOPYRROLATE 0.2 MG/ML 2 ML VIAL ONE (13:15)
[2021-01-29] MEDS ORDERED: PHENYLEPHRINE-0.9% NACL SYG 1,000 MCG/10 ML SYRINGE ONE (13:15)
[2021-01-29] MEDS ORDERED: SODIUM CHLORIDE 0.9% 100 ML BAG ONE (13:15)
[2021-01-29] MEDS ORDERED: fentaNYL (PF) 50 MCG/ML 2 ML AMP ONE (13:15)
[2021-01-29] MEDS ORDERED: PROPOFOL 10 MG/ML 20 ML VIAL IV ONE (13:15)
[2021-01-29] MEDS ORDERED: MIDAZOLAM 2 MG/2 ML VIAL ONE (13:15)
[2021-01-29] MEDS ORDERED: TRANEXAMIC ACID 1,000 MG/10 ML VIAL ONE (13:15)
[2021-01-29] MEDS ORDERED: LIDOCAINE 1% INJ 10MG/ML (20 ML MDV) ONE (13:15)
[2021-01-29] MEDS ORDERED: SUCCINYLCHOLINE CHLORIDE 100 MG/5 ML SYR IV ONE (13:15)
[2021-01-29] MEDS ORDERED: ROCURONIUM 10 MG/ML (5 ML VIAL) IV ONE (13:15)
[2021-01-29] MEDS ORDERED: HYDROmorphone (PF) 1 MG/ML ONE (13:15)
[2021-01-29] MEDS ORDERED: LACTATED RINGERS 1,000 ML IV ONE ×2 (14:41→15:02)
[2021-01-29] MEDS ORDERED: HYDROmorphone 0.2 MG/1 ML SYRINGE IVP PRN (15:02)
[2021-01-29] MEDS ORDERED: NALOXONE 0.4 MG/ML 1 ML VIAL IV PRN (15:02)
[2021-01-29] MEDS ORDERED: ONDANSETRON 4 MG/2 ML VIAL IVP PRN (15:02)
[2021-01-29] MEDS ORDERED: HYDROcodone/APAP 5-325MG 1 EACH TAB PO PRN (15:02)
[2021-01-29] MEDS ORDERED: HYDROmorphone 0.5 MG/0.5 ML SYRINGE IVP PRN (15:02)
--- NOTE | 2021-01-29 15:02 | P.OP ---
Date of Procedure: 01/29/21 Preoperative Diagnosis: Right hip osteoarthritis Postoperative Diagnosis: Right hip osteoarthritis Procedure(s) Performed: Direct anterior right total hip arthroplasty Implants: 1. Depuy Corail KA standard collar size 12 press-fit femoral stem 2. Depuy pinnacle 54 mm press-fit acetabular shell 3. Depuy pinnacle neutral polyethylene acetabular liner 36 mm ID 54 mm OD 4. Biolox delta ceramic femoral head +5 36 mm Anesthesia: KELSYA, local Surgeon: Jim Wood Marine Designer #1: Can Roberts Estimated Blood Loss (ml): 95 Pathology: other (Femoral head) Condition: stable Disposition: PACU Indications for Procedure: 65-year-old gentleman seen with symptomatic right hip osteoarthritis. After treatment options were discussed, he elected to proceed with direct anterior right total hip arthroplasty. Operative Findings: See description of procedure Description of Procedure: The patient was taken to the operative suite. Patient underwent a general anesthetic by the department of anesthesia. Patient was then transferred to the [place] table. Patient was given preoperative IV antibiotics and TXA. Both lower extremities were placed in standard leg spars. The hip was then prepped and draped in the normal sterile orthopedic fashion. A standard anterior incision was made beginning 3 cm lateral and 1 cm distal to the ASIS extending 10 cm. Dissection was then carried down through the subcutaneous soft tissues down to the fascia overlying the tensor fascia rachel. An incision was now made through the fascia. Careful dissection was taken down exposing the tensor fascia rachel muscle. A Cobra retractor was now placed along the medial femoral neck and a second one along the lateral femoral neck. The venous circumflex vessels were now identified, cauterized and clipped. We identified the anterior hip capsule. An incision was made through the hip capsule along the lateral border. I performed a partial anterior capsulectomy. Retractors were now placed around the femoral neck itself. A femoral neck cut was now made with a sagittal saw. It was completed with an osteotome at the lateral neck area. The femoral head was now removed without difficulty. The extremity was now rotated to 60 of external rotation. It was locked in position. Residual labrum was now debrided out. Serial reaming was performed of the acetabulum while Can GURROLA assisted holding an anterior retractor for exposure. Once we reached the appropriate size and a trial was position and fit nicely. The appropriate size was now chosen opened and made available. It was introduced into the acetabulum without difficulty. The C-arm/fluoroscopy was now brought into the operative field. We made sure we had a true AP pelvic view. We now under direct C- arm/fluoroscopy introduced into the acetabular component with appropriate version and inclination. I held the cup in appropriate position while Can GURROLA used a mallet to seat the acetabular component. I noted the component now to be well seated and stable. Acetabular cup introduce her was removed. The C-arm was pulled back. An appropriate liner was introduced and clicked into position. It was felt to be stable. At this point retractors were removed. The extremity was now placed into 140 external rotation with no traction. The leg was now dropped to the ground and adducted. Appropriate retractors were now positioned along the proximal femur. We also placed our femoral look into position. Additional capsular releasing was performed to gain access to the proximal femur. We now used a box osteotome. A canal finder was now utilized. Serial broaching was now performed with the assistance of Can GURROLA tapping the broaches down with a mallet while held the broach in appropriate rotation and position. This was done until we reached the appropriate size with good overall rotational stability. Appropriate calcar planing was performed. A trial head/neck was placed into position. The hip was now reduced. The C- arm/fluoroscopy was brought back into the operative field. I obtained an AP pelvis demonstrating adequate leg length alignment. The trial components appeared appropriately sized. The C-arm/fluoroscopy was pulled back. Retractors were repositioned and the hip was dislocated. The leg was again taken down to the ground and adducted. Appropriate retractors were repositioned as well as the femoral hook. All trial components were removed. The femoral implant was opened along with the femoral head. The femoral implant was introduced on the appropriate handle into our pre-broached area. I held the component position while Can GURROLA used a mallet to seat the femoral component. The femoral component was now noted to be well seated and stable.. The femoral head was introduced with good positioning and fixation noted. Retractors were now removed. The hip was now reduced. There appeared be good positioning of the hip confirmed on intraoperative fluoroscopy. Spot films were obtained to document this. A second gram of TXA was given. The deep and superficial soft tissues were infiltrated with local analgesic. Bipolar cautery had been utilized intermittently through the procedure for hemostasis. The wound was irrigated copiously with pulse lavage mechanical irrigation. The fascia was repaired with Vicryl suture. The subcutaneous soft tissues were repaired in layers with Vicryl suture. The skin was approximated with nylon suture. Sterile dressings were applied. Patient was then awakened, transferred to a bed and taken to recovery in stable condition. Can GURROLA assisted with the complex procedure.
--- NOTE | 2021-01-29 15:04 | FL ---
EXAMINATION TYPE: FL guidance operating room, XR Hip Limited RT DATE OF EXAM: 01/29/2021 CLINICAL HISTORY: Right hip pain and osteoarthritis. TECHNIQUE: Fluoroscopy. Limited intraoperative views right hip. COMPARISON: Outside right hip x-ray December 15, 2020. FINDINGS: Fluoroscopic guidance was provided during right hip replacement procedure performed by Dr. Wood. A total of 10 seconds of fluoroscopic time was utilized during the procedure and 3 spot images was acquired. Intraoperative images obtained show metallic hardware from right hip arthroplasty satisfactory in pos ition on frontal projection. IMPRESSION: As Above.
[2021-01-29 15:30] LABS: Glucose,Whole Blood 139 mg/dL (75-99)
[2021-01-29] MEDS: HYDROmorphone 0.5 MG/0.5 ML SYRINGE IVP PRN ×3 (15:44→16:16)
[2021-01-29] MEDS: HYDROmorphone 1 MG/ML 1 ML SYRINGE IVP PRN (17:20)
[2021-01-29] MEDS ORDERED: allopurinoL 100 MG TAB PO PRN (20:14)
[2021-01-29 21:21] LABS: Glucose,Whole Blood 150 mg/dL (75-99)
[2021-01-29] MEDS: carvediloL 12.5 MG TAB PO SCH (22:16)
[2021-01-29] MEDS: INSULIN ASPART (NovoLOG) 100 UNIT/ML VIAL SQ SCH (22:16)
[2021-01-29] MEDS: LOSARTAN 50 MG TAB PO SCH (22:16)
[2021-01-29] MEDS: HYDROcodone/APAP 7.5-325MG 1 EACH TAB PO PRN (22:17)
[2021-01-29] MEDS: buPROPion SR 100 MG TABLET.ER PO SCH (22:20)
[2021-01-30] MEDS: HYDROmorphone 1 MG/ML 1 ML SYRINGE IVP PRN (02:08)
[2021-01-30 02:15] VITALS: RESP 18
[2021-01-30] MEDS: HYDROcodone/APAP 7.5-325MG 1 EACH TAB PO PRN (05:59)
[2021-01-30 07:00] LABS: Glucose,Whole Blood 131 mg/dL (75-99)
[2021-01-30] MEDS ORDERED: INSULIN DETEMIR (LEVEMIR) 100 UNIT/ML SYR SQ SCH (07:00)
[2021-01-30] MEDS: INSULIN ASPART (NovoLOG) 100 UNIT/ML VIAL SQ SCH ×2 (07:12→07:20)
[2021-01-30] MEDS: LOSARTAN 50 MG TAB PO SCH (07:14)
[2021-01-30] MEDS: carvediloL 12.5 MG TAB PO SCH (07:14)
[2021-01-30] MEDS: buPROPion SR 100 MG TABLET.ER PO SCH (07:16)
[2021-01-30] MEDS ORDERED: metFORMIN 500 MG TAB PO SCH (07:30)
[2021-01-30] MEDS ORDERED: PANTOPRAZOLE 40 MG TABLET PO SCH (07:30)
[2021-01-30 07:44] VITALS: BP 118/64; PULSE 76; TEMP 97.9
[2021-01-30] MEDS ORDERED: ASPIRIN 81 MG PO SCH (09:00)
[2021-01-30] MEDS ORDERED: ENOXAPARIN 40 MG/0.4 ML SYRINGE SQ ONE (09:00)
[2021-01-30] MEDS ORDERED: ATORVASTATIN 40 MG TAB PO SCH (09:00)
[2021-01-30] MEDS ORDERED: FERROUS SULFATE 325 MG TAB PO SCH (09:00)
[2021-01-30] MEDS ORDERED: CHOLECALCIFEROL 25 MCG (1000 IU) TABLET PO SCH (09:00)
[2021-01-30] MEDS ORDERED: CYANOCOBALAMIN 500 MCG TAB PO SCH (09:00)
[2021-01-30] MEDS ORDERED: MULTIVITAMINS, THERA 1 EACH TAB PO SCH (09:00)
--- NOTE | 2021-01-30 09:50 | P.PN ---
Subjective Progress Note Date: 01/30/21 Principal diagnosis: Status post direct anterior right total hip arthroplasty Patient evaluated at bedside today, he is resting comfortably. He has ambulated very well with therapy. He has no acute pain. He denies any shortness of breath, chest pain, nausea or vomiting. Objective - Vital Signs Vital signs: Vital Signs Temp 97.9 F 01/30/21 07:43 Pulse 76 01/30/21 07:45 Resp 18 01/30/21 07:45 BP 118/64 01/30/21 07:43 Pulse Ox 95 01/30/21 07:43 Intake & Output 01/29/21 01/30/21 01/30/21 18:59 06:59 18:59 Intake Total 1650 Output Total 95 1050 Balance 1555 -1050 Weight 98 kg Intake: IV 1650 Output: Urine 1050 Estimated Blood Loss 95 Other: Voiding Method Toilet Toilet Urinal - Exam Right lower extremity: Incision is clean, dry, and intact. The foam dressing is in good condition. There is minimal soft tissue swelling and ecchymosis surrounding the medial and lateral aspects of the incision. Calf is soft, no tenderness with palpation. Plantar flexion, dorsiflexion, EHL, FHL are intact. Sensory exam to light touch throughout the extremity is intact, dorsal pedis pulses 2+. - Labs Labs: Abnormal Lab Results - Last 24 Hours (Table) 01/29/21 01/29/21 01/30/21 Range/Units 15:29 21:20 06:59 POC Glucose (mg/dL) 139 H 150 H 131 H (75-99) mg/dL Assessment and Plan Assessment: Postoperative day #1 status post direct anterior right total hip arthroplasty Plan: Pain control, plan for discharge home on oral medication GI and DVT prophylaxis, he will resume aspirin 81 mg twice a day Wound care instructions were discussed, this to include showering along with icing and elevating Home physical therapy and nursing after surgery Discharge planning: Patient stable for discharge home today Time with Patient: Less than 30
--- NOTE | 2021-01-30 11:13 | P.DS ---
Providers Date of admission: 01/29/2021 Expected date of discharge: 01/30/21 Attending physician: Jim Wood Primary care physician: PIERRE Matute Hospital Course: Date of admission: 01/29/2021 Date of discharge: 01/30/2021 Admission diagnosis: Status post direct anterior right total hip arthroplasty Discharge diagnosis: Same Attending physician: Dr. Wood Surgical procedures: Direct anterior right total hip arthroplasty Brief history: Patient is a 65-year-old male with a history of progressive primary right hip osteoarthritis. At this point patient has failed conservative treatment measures and has opted to proceed with a elective direct anterior right total hip arthroplasty. Hospital course: Details of patient's surgery can be found in operative report. Patient tolerated the procedure well and was subsequently transported to orthopedic floor. Patient's orthopeidc and medical care was provided daily. Patient had daily laboratory tests performed for evaluation of overall blood counts. Patient had daily physical therapy to include strengthening range of motion as well as education with walker ambulation. Patient was treated with Lovenox for their postoperative DVT prophylaxis during their inpatient stay. Patient was noted to have a relatively uneventful postoperative course. Patient reported satisfactory pain control with oral pain medications by postoperative day 0. Patient showed satisfactory progress with physical therapy. Patient moved steadily through the program and had no difficulty meeting the goals by postoperative day 1. Given patient's otherwise satisfactory course and having met physical therapy goals, plan is to discharge patient home on postoperative day 1. Discharge condition/disposition: Patient will be discharged home in stable condition. Discharge medications: Instructions are given on resumption of patient's normal daily medications per primary care recommendation, in addition patient will be prescribed Pigeon 7.5 mg/325 mg, Keflex 500 mg Discharge instructions: 1. Wound care and infection precautions, keep incision dry and covered while showering, no lotions, creams, moisturizers. No soaking, tubs, pools, hottubs. Do not scrub over the incision. 2. Weight-bear as tolerated with walker / cane until follow-up. 3. Ice and elevate when necessary. Do not exceed 20 minutes per hour with ice pack. 4. Utilize compression sleeve until seen at first follow up appointment. 5. Visiting nursing care. 6. Home physical therapy. 7. Pain meds and anticoagulants per prescription. 8. Pain medication has potential to cause constipation. Increase oral fluid and fiber intake. Contact primary care provider if you have not had a bowel movement within 48 hours after discharge 9. No anti-inflammatory medication until discussed at first post operative vis it, this including Motrin, Aleve, Mobic, Diclofenac. 10. Follow up in office at 2 weeks postop with Lobo Rich PA-C/Can Johnson 11. Follow up with your primary care doctor 7-10 days after discharge. 12. Contact [facility] with any questions, . Procedures: Direct anterior right total hip arthroplasty Patient Condition at Discharge: Good Plan - Discharge Summary Discharge Rx Participant: Yes New Discharge Prescriptions: New Cephalexin [Keflex] 500 mg PO Q6HR 10 Days #40 cap HYDROcodone/APAP 7.5-325MG [Pigeon 7.5] 1 - 2 each PO Q6HR PRN #42 tab PRN Reason: Pain No Action Multivitamins, Thera [Multivitamin (formulary)] 1 tab PO DAILY metFORMIN HCL [Glucophage] 1,000 mg PO BID #120 tab Losartan Potassium 50 mg PO BID Liraglutide [Victoza 2-Selvin] 1.8 mg SQ DAILY Aspirin [Adult Low Dose Aspirin EC] 162 mg PO DAILY Ferrous Sulfate [Feosol] 325 mg PO DAILY Insulin Glargine [Lantus] 30 unit SQ DAILY Pantoprazole Sodium [Protonix] 40 mg PO DAILY carvediloL 25 mg PO BID Allopurinol [Zyloprim] 100 mg PO DAILY PRN PRN Reason: GOUT FLARE UP Cyanocobalamin (Vitamin B-12) [Vitamin B-12] 1,000 mcg PO DAILY Ergocalciferol (Vitamin D2) [Vitamin D2 (2000 Iu)] 50 mcg PO DAILY Rosuvastatin [Crestor] 20 mg PO DAILY Indomethacin [Indocin] 50 mg PO BID PRN PRN Reason: GOUT FLARE UP buPROPion HCL [buPROPion HCL ER] 200 mg PO Q12HR Discharge Medication List Multivitamins, Thera [Multivitamin (formulary)] 1 tab PO DAILY 07/02/16 [History] metFORMIN HCL [Glucophage] 1,000 mg PO BID #120 tab 02/08/17 [Rx] Losartan Potassium 50 mg PO BID 08/08/17 [History] Liraglutide [Victoza 2-Selvin] 1.8 mg SQ DAILY 09/15/17 [History] Aspirin [Adult Low Dose Aspirin EC] 162 mg PO DAILY 09/08/18 [History] Ferrous Sulfate [Feosol] 325 mg PO DAILY 09/08/18 [History] Insulin Glargine [Lantus] 30 unit SQ DAILY 09/08/18 [History] Pantoprazole Sodium [Protonix] 40 mg PO DAILY 09/08/18 [History] carvediloL 25 mg PO BID 09/14/18 [History] Allopurinol [Zyloprim] 100 mg PO DAILY PRN 08/04/20 [History] Cyanocobalamin (Vitamin B-12) [Vitamin B-12] 1,000 mcg PO DAILY 08/04/20 [History] Ergocalciferol (Vitamin D2) [Vitamin D2 (2000 Iu)] 50 mcg PO DAILY 08/04/20 [History] Indomethacin [Indocin] 50 mg PO BID PRN 08/04/20 [History] Rosuvastatin [Crestor] 20 mg PO DAILY 08/04/20 [History] buPROPion HCL [buPROPion HCL ER] 200 mg PO Q12HR 01/24/21 [History] Cephalexin [Keflex] 500 mg PO Q6HR 10 Days #40 cap 01/30/21 [Rx] HYDROcodone/APAP 7.5-325MG [Pigeon 7.5] 1 - 2 each PO Q6HR PRN #42 tab 01/30/21 [Rx] Follow up Appointment(s)/Referral(s): Kasi Jenkins NPC [Primary Care Provider] - 02/05/21 10:00 am [facility] [NON-STAFF] - Rodriguez Rich PAC [PHYSICIAN BASE ENGINEER] - 02/14/21 3:10 pm Patient Instructions/Handouts: Total Hip Replacement (DC) Activity/Diet/Wound Care/Special Instructions: Orthopedic Discharge Instructions: 1. Wound care and infection precautions, keep incision dry and covered while showering, no lotions, creams, moisturizers. No soaking, pools, hot tubs. Do not scrub over incision. 2. Weight-bear as tolerated with walker / cane until follow-up. 3. Ice and elevate when necessary. Do not exceed 20 minutes per hour with ice pack. 4. Utilize compression sleeve until seen at first follow up appointment. 5. Pain meds and anticoagulants per prescription. 6. Pain medication has potential to cause constipation. Increase oral fluid and fiber intake. Contact primary care provider if you have not had a bowel movement within 48 hours after discharge. 7. No anti-inflammatory medication until discussed at first post operative visit, this including Motrin, Aleve, Mobic, Diclofenac. 8. Follow up in office at 2 weeks postop with Lobo Rich PA-C/Can Roberts PA-C 9. Follow up with your primary care doctor 7-10 days after discharge. 10. Contact [facility] with any questions, . Wound care instructions: 1. Okay to remove foam dressing on 02/02/2021 2. Please keep incision covered and dry while showering both before and after removal of the dressing Discharge Disposition: HOME WITH HOME HEALTH SERVICES
== END 2021-01-30 13:06 | disposition home health service (06) ==
LOC: OR 11:33 → 4SSUR 16:32 → OR 01-30 13:06
PROVIDERS: ATTEND Orthopaedic Surgery
DX: M16.11 Unilateral primary osteoarthritis, right hip (principal); I10 Essential (primary) hypertension; E78.5 Hyperlipidemia, unspecified; E11.9 Type 2 diabetes mellitus without complications; Z96.642 Presence of left artificial hip joint; Z87.891 Personal history of nicotine dependence; M10.9 Gout, unspecified; E66.9 Obesity, unspecified; Z68.31 Body mass index [BMI] 31.0-31.9, adult; D64.9 Anemia, unspecified; Z98.890 Other specified postprocedural states; Z79.84 Long term (current) use of oral hypoglycemic drugs; Z79.82 Long term (current) use of aspirin; Z79.4 Long term (current) use of insulin; Z79.899 Other long term (current) drug therapy; Z88.4 Allergy status to anesthetic agent; Z88.2 Allergy status to sulfonamides; Z88.8 Allergy status to other drugs, medicaments and biological substances; Z88.5 Allergy status to narcotic agent
CPT/HCPCS: 97161; 86900; 86901; 86850; 88300; 73501; 27130; C1776; J2250; J1100; J2710; S0106 ×2; J0690 ×2; J2405; J2001; J1650; J3010; J1170 ×3; J2370; J0330; J2704

== ENCOUNTER → 2021-02-21 | Outpatient (CLI) | payer OTHER ==
[2021-02-22 00:53] LABS: African American GFR (CKD) 91.3 (60.0-200.0); Albumin 4.9 g/dL (3.8-4.9); Albumin/Globulin Ratio 2.13 (1.60-3.17); Anion Gap 8.2 mmol/L (4.00-12.00); BUN/Creat Ratio 13.76 Ratio (12.00-20.00); Blood Urea Nitrogen 13.9 mg/dL (9.0-27.0); Carbon Dioxide 30.4 mmol/L (21.6-31.8); Globulin 2.3 g/dL (1.6-3.3); Non-African American GFR(CKD) 78.8 (60.0-200.0); Potassium 4.6 mmol/L (3.5-5.5); Total Bilirubin 0.3 mg/dL (0.30-1.20); Total Protein 7.2 g/dL (6.2-8.2)
== END | disposition home or self-care (01) ==
LOC: LABWHC1 13:36
PROVIDERS: ATTEND Internal Medicine Gastroenterology
DX: K75.81 Nonalcoholic steatohepatitis (NASH) (principal)
CPT/HCPCS: 36415; 80053

== ENCOUNTER → 2021-05-08 | Outpatient (CLI) | payer OTHER ==
[2021-05-08 23:08] LABS: ALT 24 U/L (10-49); AST 21 U/L (14-35); African American GFR (CKD) 106.4 (60.0-200.0); Albumin 4.9 g/dL (3.8-4.9); Albumin/Globulin Ratio 2.11 (1.60-3.17); Alkaline Phosphatase 57 U/L (41-126); BUN/Creat Ratio 13.32 Ratio (12.00-20.00); Blood Urea Nitrogen 11.4 mg/dL (9.0-27.0); Calcium 9.9 mg/dL (8.7-10.3); Carbon Dioxide 26.8 mmol/L (20.0-27.5); Chloride 102 mmol/L (96-109); Globulin 2.3 g/dL (1.6-3.3); Glucose 87 mg/dL (70-110); LDL Cholesterol,Calculated 64.9 mg/dL (0.0-131.0); Non-African American GFR(CKD) 91.8 (60.0-200.0); Potassium 4.2 mmol/L (3.5-5.5); Sodium 143 mmol/L (135-145); Total Protein 7.2 g/dL (6.2-8.2)
[2021-05-09 10:41] LABS: Microalbumin Creatinine Ratio <30 mg/g Creat (0-30)
== END | disposition home or self-care (01) ==
LOC: LABWHC1 13:53
PROVIDERS: ATTEND Internal Medicine Endocrinology, Diabetes & Metabolism
DX: E11.65 Type 2 diabetes mellitus with hyperglycemia (principal)
CPT/HCPCS: 36415; 80053; 80061; 82043; 82570; 83036; 84443

== ENCOUNTER → 2022-01-16 | Outpatient (CLI) | payer OTHER ==
[2022-01-16 15:21] LABS: ALT 39 U/L (10-49); AST 31 U/L (14-35); African American GFR (CKD) 99.9 (60.0-200.0); Albumin 5.1 g/dL (3.8-4.9); Albumin/Globulin Ratio 2.06 (1.60-3.17); Alkaline Phosphatase 47 U/L (41-126); BUN/Creat Ratio 12.55 Ratio (12.00-20.00); Blood Urea Nitrogen 11.7 mg/dL (9.0-27.0); Carbon Dioxide 26.4 mmol/L (20.0-27.5); Chloride 101 mmol/L (96-109); Chol/HDL Ratio 2.05 Ratio; Globulin 2.5 g/dL (1.6-3.3); Glucose 122 mg/dL (70-110); LDL Cholesterol,Calculated 38.4 mg/dL (0.0-131.0); Non-African American GFR(CKD) 86.2 (60.0-200.0); Potassium 4.6 mmol/L (3.5-5.5); Sodium 141 mmol/L (135-145); Total Protein 7.6 g/dL (6.2-8.2); VLDL Calculation 18.94 mg/dL (5.00-40.00)
[2022-01-16 20:00] LABS: Microalbumin Creatinine Ratio <30 mg/g Creat (0-30); Urine Creatinine 97.5 mg/dL (39.0-259.0)
== END | disposition home or self-care (01) ==
LOC: LABWHC1 08:21
PROVIDERS: ATTEND Internal Medicine Endocrinology, Diabetes & Metabolism
DX: E11.65 Type 2 diabetes mellitus with hyperglycemia (principal)
CPT/HCPCS: 36415; 80053; 80061; 82043; 82570; 83036; 84443

== ENCOUNTER → 2022-02-19 | Outpatient (CLI) | payer OTHER ==
[2022-02-19 18:26] LABS: Basophils # (A) 0.04 X 10*3/uL (0.00-0.10); Basophils % (A) 0.6 %; Eosinophils # (A) 0.35 X 10*3/uL (0.04-0.35); HCT 39.7 % (39.6-50.0); HGB 13.4 g/dL (13.0-17.0); Immature Grans, Automated 0.1 %; Lymphocytes # (A) 3.24 X 10*3/uL (0.90-5.00); MCH 28.9 pg (27.0-32.0); MCHC 33.8 g/dL (32.0-37.0); MCV 85.7 fL (80.0-97.0); Mean Platelet Volume 10.9 fL (9.5-12.2); Monocytes # (A) 0.56 X 10*3/uL (0.20-1.00); Monocytes % (A) 7.9 %; NRBC Per 100 WBC 0 /100 WBCS (0.0-0.0); Neutrophils # (A) 2.85 X 10*3/uL (1.80-7.70); Neutrophils % (A) 40.4 %; Platelet Count 213 X 10*3/uL (140-440); RBC 4.63 X 10*6/uL (4.40-5.60); RDW 13.8 % (11.5-14.5); WBC 7.05 X 10*3/uL (4.50-10.00)
[2022-02-19 19:21] LABS: African American GFR (CKD) 100.9 (60.0-200.0); Albumin 4.8 g/dL (3.8-4.9); Albumin/Globulin Ratio 1.97 (1.60-3.17); Anion Gap 11.3 mmol/L (10.00-18.00); BUN/Creat Ratio 14.7 Ratio (12.00-20.00); Blood Urea Nitrogen 13.6 mg/dL (9.0-27.0); Calcium 9.4 mg/dL (8.7-10.3); Carbon Dioxide 26.7 mmol/L (20.0-27.5); Globulin 2.4 g/dL (1.6-3.3); Potassium 4.4 mmol/L (3.5-5.5); Total Bilirubin 0.3 mg/dL (0.30-1.20); Total Protein 7.2 g/dL (6.2-8.2)
== END | disposition home or self-care (01) ==
LOC: LABWHC1 11:38
PROVIDERS: ATTEND Internal Medicine Gastroenterology
DX: K75.81 Nonalcoholic steatohepatitis (NASH) (principal)
CPT/HCPCS: 36415; 80053; 85025

== ENCOUNTER → 2022-05-07 | Outpatient (CLI) | payer OTHER ==
[2022-05-07 19:18] LABS: ALT 54 U/L (10-49); AST 26 U/L (14-35); African American GFR (CKD) 103.5 (60.0-200.0); Albumin 4.8 g/dL (3.8-4.9); Albumin/Globulin Ratio 2.29 (1.60-3.17); Alkaline Phosphatase 53 U/L (41-126); BUN/Creat Ratio 22.11 Ratio (12.00-20.00); Blood Urea Nitrogen 19.9 mg/dL (9.0-27.0); Calcium 9.8 mg/dL (8.7-10.3); Carbon Dioxide 24.2 mmol/L (20.0-27.5); Chloride 102 mmol/L (96-109); Chol/HDL Ratio 2.28 Ratio; Globulin 2.1 g/dL (1.6-3.3); Glucose 107 mg/dL (70-110); LDL Cholesterol,Calculated 28.7 mg/dL (0.0-131.0); Non-African American GFR(CKD) 89.3 (60.0-200.0); Potassium 4.5 mmol/L (3.5-5.5); Sodium 140 mmol/L (135-145); Total Protein 6.9 g/dL (6.2-8.2)
[2022-05-07 22:51] LABS: Microalbumin Creatinine Ratio <30 mg/g Creat (0-30); Urine Creatinine 88.4 mg/dL (39.0-259.0)
== END | disposition home or self-care (01) ==
LOC: LABWHC1 11:00
PROVIDERS: ATTEND Internal Medicine Endocrinology, Diabetes & Metabolism
DX: E11.65 Type 2 diabetes mellitus with hyperglycemia (principal)
CPT/HCPCS: 36415; 80053; 80061; 82043; 82570; 83036; 84443

== ENCOUNTER → 2022-05-30 | Outpatient (CLI) | payer OTHER ==
--- NOTE | 2022-05-30 14:06 | CTL ---
EXAMINATION TYPE: CT Low Dose Lung DATE OF EXAM ORDERED: 05/30/2022 HISTORY: Long-term tobacco use. Lung cancer screening CT DLP: 104.[address] CTDI: 2.6 mGy Automated exposure control for dose reduction was used. SCREENING VISIT: First after baseline COMPARISON: Prior study 2018 TECHNIQUE: Low dose computed tomography scan was performed through the chest at 1 mm thick sections a nd reconstructed images in multiple planes at 1 mm and [address] DIAGNOSTIC QUALITY: Satisfactory FINDINGS: LUNG NODULES: None. LUNGS: COPD: Severity: None Fibrosis: Severity: None Lymph nodes: No greater than 1 cm Other findings: None RIGHT PLEURAL SPACE: Effusion: None Calcification: None Thickening: None Pneumothorax: None LEFT PLEURAL SPACE: Effusion: None Calcification: None Thickening: None Pneumothorax: None HEART: Heart Size: Normal Coronary Calcification: [id number] redemonstrated Pericardial Effusion: None OTHER FINDINGS: Upper abdomen: Visualized liver heterogeneously hypodense suggesting mild diffuse fatty infiltration Bony thorax: Slight scoliotic curvature with mild multilevel spurring Supraclavicular region: None Other: Symmetric small degree of bilateral subareolar flame-shaped gynecomastia redemonstrated. IMPRESSION: No significant new greater than [address] LUNG RAD AND CT CHEST RECOMMENDATION: Lung-Rad 1 Negative: Continue annual screening with LDCT in 12 months. S Modifier (other clinically significant findings): None
== END | disposition home or self-care (01) ==
LOC: RADCTMAIN 12:16
DX: Z12.2 Encounter for screening for malignant neoplasm of respiratory organs (principal); R91.8 Other nonspecific abnormal finding of lung field; Z87.891 Personal history of nicotine dependence
CPT/HCPCS: 71271

== ENCOUNTER → 2023-02-19 | Outpatient (CLI) | payer OTHER ==
[2023-02-19 11:09] LABS: ALT 53 U/L (10-49); AST 28 U/L (14-35); Albumin 4.7 d/dL (3.8-4.9); Albumin/Globulin Ratio 2.14 Ratio (1.60-3.17); Alkaline Phosphatase 61 U/L (41-126); Blood Urea Nitrogen 13.7 mg/dL (9.0-27.0); Calcium 9.9 mg/dL (8.7-10.3); Carbon Dioxide 24.9 mmol/L (21.6-31.8); Chloride 104 mmol/L (96-109); Chol/HDL Ratio 2.44 Ratio; Globulin 2.2 d/dL (1.6-3.3); Glucose 126 mg/dL (70-110); LDL Cholesterol,Calculated 42.3 mg/dL (0.0-131.0); Potassium 4.6 mmol/L (3.5-5.5); Sodium 143 mmol/L (135-145); Total Bilirubin 0.4 mg/dL (0.3-1.2); Total Protein 6.9 d/dL (6.2-8.2)
[2023-02-19 11:12] LABS: Basophils # (A) 0.06 X 10*3/uL (0.00-0.10); Basophils % (A) 0.7 %; Eosinophils # (A) 0.31 X 10*3/uL (0.04-0.35); Eosinophils % (A) 3.6 %; HCT 44.1 % (39.6-50.0); HGB 14.7 d/dL (13.0-17.0); Lymphocytes # (A) 3.12 X 10*3/uL (0.90-5.00); Lymphocytes % (A) 36.4 %; MCH 28.8 pg (27.0-32.0); MCHC 33.3 d/dL (32.0-37.0); MCV 86.3 FL (80.0-97.0); Mean Platelet Volume 10.6 FL (9.5-12.2); Monocytes # (A) 0.71 X 10*3/uL (0.20-1.00); Monocytes % (A) 8.3 %; NRBC Per 100 WBC 0 X 10*3/uL (0.00-0.01); Neutrophils # (A) 4.34 X 10*3/uL (1.80-7.70); Neutrophils % (A) 50.8 %; Platelet Count 226 X 10*3/uL (140-440); RBC 5.11 X 10*6/uL (4.40-5.60); RDW 13.7 % (11.5-14.5); WBC 8.56 X 10*3/uL (4.50-10.00)
[2023-02-19 13:54] LABS: Microalbumin Creatinine Ratio <9 mg/g Cr (0-30)
== END | disposition home or self-care (01) ==
LOC: LABWHC1 07:45
PROVIDERS: ATTEND Internal Medicine Gastroenterology
DX: E11.65 Type 2 diabetes mellitus with hyperglycemia (principal); K75.81 Nonalcoholic steatohepatitis (NASH)
CPT/HCPCS: 36415; 80053; 80061; 82043; 82570; 83036; 84443; 85025

== ENCOUNTER → 2023-06-05 | Outpatient (CLI) | payer OTHER ==
--- NOTE | 2023-06-05 14:09 | CTL ---
EXAMINATION TYPE: CT Low Dose Lung DATE OF EXAM: 06/05/2023 12:53 PM CLINICAL INDICATION:Male, 68 years old with history of Z87.891 PERSONAL HISTORY OF NICOTINE DEPENDENC E; history of smoker , history of tobacco use. COMPARISON: None. TECHNIQUE: Multiple axial non-contrast scans were obtained from approximately the lung apices through the upper abdomen. Coronal and sagittal reformatted images were obtained. Low dose technique was uti lized. CT DLP: 160.6 mGycm, Automated exposure control for dose reduction was used. CT Contrast: Contrast used: None Oral contrast used: None FINDINGS: ======== Lack of intravenous contrast and low dose technique limits the evaluation of the vascular and soft ti ssue structures. LUNGS: No evidence of pulmonary fibrosis. No evidence of focal consolidation, pneumothorax or pleural effusion. Mild centrilobular emphysema changes throughout the lungs. Nodules: RUL: None. RML: None. RLL: None. NAS: 3 mm series 3 image 101.. LLL: None. AIRWAY: Patent and unremarkable. HEART: Size within normal limits. Mild coronary artery atherosclerosis. MEDIASTINUM: No gross evidence of adenopathy. VASCULATURE: No aortic aneurysm. MUSCULOSKELETAL: Mild disc degeneration changes are present throughout the thoracolumbar spine. SOFT TISSUES/LYMPH NODES: Unremarkable. LOWER NECK: No significant findings. UPPER ABDOMEN: No significant findings. IMPRESSION: 1. No clinically significant pulmonary nodules. 2. Mild emphysema changes. CT LUNG RAD AND CT CHEST RECOMMENDATION: Lung-Rad 2 Benign Appearance or Behavior: Continue annual sc reening with LDCT in 12 months. S Modifier (other clinically significant findings): None Recommend smoking cessation (if current smoker), or continuation of smoking cessation (if prior smoke r). Annual screening for lung cancer with low-dose computed tomography is recommended in adults ages 55 to 77 years who have a 30 pack-year smoking history and currently smoke or have quit within the pa st 15 years. Screening should be discontinued once a person has not smoked for 15 years or develops a health problem that substantially limits life expectancy or the ability or willingness to have curat raquel lung surgery. Lung rads 2021 [email or web address]
== END | disposition home or self-care (01) ==
LOC: RADCTMAIN 12:18
PROVIDERS: ATTEND Family Medicine
DX: Z12.2 Encounter for screening for malignant neoplasm of respiratory organs (principal); J43.2 Centrilobular emphysema; Z87.891 Personal history of nicotine dependence
CPT/HCPCS: 71271

== ENCOUNTER → 2023-09-15 | Outpatient (CLI) | payer OTHER ==
[2023-09-15 19:06] LABS: ALT 43 U/L (10-49); AST 30 U/L (14-35); Albumin 4.7 g/dL (3.8-4.9); Albumin/Globulin Ratio 2.14 Ratio (1.60-3.17); Alkaline Phosphatase 61 U/L (41-126); BUN/Creat Ratio 11.56 Ratio (12.00-20.00); Blood Urea Nitrogen 10.4 mg/dL (9.0-27.0); Calcium 9.6 mg/dL (8.7-10.3); Carbon Dioxide 24.2 mmol/L (21.6-31.8); Chloride 108 mmol/L (96-109); Globulin 2.2 g/dL (1.6-3.3); Glucose 96 mg/dL (70-110); LDL Cholesterol,Calculated 38.5 mg/dL (0.0-131.0); Potassium 3.9 mmol/L (3.5-5.5); Sodium 144 mmol/L (135-145); Total Bilirubin 0.3 mg/dL (0.3-1.2); Total Protein 6.9 g/dL (6.2-8.2)
[2023-09-16 13:56] LABS: Microalbumin Creatinine Ratio <8 mg/g Cr (0-30)
== END | disposition home or self-care (01) ==
LOC: LABWHC1 14:47
PROVIDERS: ATTEND Internal Medicine Endocrinology, Diabetes & Metabolism
DX: E11.65 Type 2 diabetes mellitus with hyperglycemia (principal)
CPT/HCPCS: 36415; 80053; 80061; 82043; 82570; 83036; 84443

== ENCOUNTER → 2023-10-21 | Outpatient (CLI) | payer OTHER ==
--- NOTE | 2023-10-21 13:03 | US ---
EXAMINATION TYPE: US carotid duplex BILAT DATE OF EXAM: 10/21/2023 COMPARISON: CLINICAL INDICATION: Male, 68 years old with history of I65.22 OCCLUSION AND STENOSIS OF LEFT CAROTID STEVEN; HTN- on meds. No hx tia or stroke TECHNIQUE: Carotid duplex ultrasound examination. Indirect Doppler criteria was utilized. FINDINGS: EXAM MEASUREMENTS: RIGHT: Peak Systolic Velocity (PSV) cm/sec ----- Right CCA: 65.5 ----- Right ICA: 96.5 ----- Right ECA: 136.6 ICA/CCA ratio: 1.5 RIGHT: End Diastole cm/sec ----- Right CCA: 23.7 ----- Right ICA: 28.0 ----- Right ECA: 22.0 LEFT: Peak Systolic Velocity (PSV) cm/sec ----- Left CCA: 84.2 ----- Left ICA: 89.2 ----- Left ECA: 127.0 ICA/CCA ratio: 1.1 LEFT: End Diastole cm/sec ----- Left CCA: 28.1 ----- Left ICA: 30.9 ----- Left ECA: 26.8 VERTEBRALS (direction of flow): Right Vertebral: Antegrade Left Vertebral: Antegrade Rhythm: Normal SURGEON'S ASSISTANT NOTES: Slightly elevated right ECA velocity. IMPRESSION: Less than 50% stenosis of the bilateral carotid bifurcations. Criteria for Assigning % of Stenosis / Diameter reduction (Estimation based on the indirect measurements of the internal carotid artery velocities (ICA PSV). 1. Normal (no stenosis)=ICA PSV < 125 cm/s: ratio < 2.0: ICA EDV<40 cm/s. 2. Less than 50% stenosis=ICA PSV < 125 cm/s: ratio < 2.0: ICA EDV<40 cm/s. 3. 50 to 69% stenosis=ICA PSV of 125 to 230 cm/s: ration 2.0 ? 4.0: ICA EDV 40-100 cm/s. 4. Greater than 70% stenosis to near occlusion= ICA PSV > 230 cm/s: ratio > 4.0: ICA EDV > 100 cm/s. 5. Near occlusion= ICA PSV velocities may be low or undetectable: variable ratio and ICA EDV. 6. Total occlusion=unable to detect flow.
== END | disposition home or self-care (01) ==
LOC: RADUSWWP 10:27
PROVIDERS: ATTEND Family Medicine
DX: I65.23 Occlusion and stenosis of bilateral carotid arteries (principal)
CPT/HCPCS: 93880

== ENCOUNTER → 2024-02-24 | Outpatient (CLI) | payer OTHER ==
[2024-02-24 15:34] LABS: ALT 35 U/L (10-49); AST 26 U/L (14-35); Albumin 4.8 g/dL (3.8-4.9); Alkaline Phosphatase 67 U/L (41-126); BUN/Creat Ratio 21.29 Ratio (12.00-20.00); Blood Urea Nitrogen 14.9 mg/dL (9.0-27.0); Calcium 9.6 mg/dL (8.7-10.3); Carbon Dioxide 21.9 mmol/L (21.6-31.8); Chloride 103 mmol/L (96-109); Globulin 2.4 g/dL (1.6-3.3); Glucose 178 mg/dL (70-110); Potassium 4.4 mmol/L (3.5-5.5); Sodium 139 mmol/L (135-145); Total Bilirubin 0.4 mg/dL (0.3-1.2); Total Protein 7.2 g/dL (6.2-8.2)
[2024-02-24 16:06] LABS: Basophils # (A) 0.04 X 10*3/uL (0.00-0.10); Basophils % (A) 0.5 %; Eosinophils # (A) 0.24 X 10*3/uL (0.04-0.35); Eosinophils % (A) 3.3 %; HCT 43.2 % (39.6-50.0); HGB 14.4 g/dL (13.0-17.0); Lymphocytes # (A) 2.74 X 10*3/uL (0.90-5.00); Lymphocytes % (A) 37.6 %; MCH 28.6 pg (27.0-32.0); MCHC 33.3 g/dL (32.0-37.0); MCV 85.9 FL (80.0-97.0); Mean Platelet Volume 10.9 FL (9.5-12.2); Monocytes # (A) 0.43 X 10*3/uL (0.20-1.00); Monocytes % (A) 5.9 %; NRBC Per 100 WBC 0 X 10*3/uL (0.00-0.01); Neutrophils # (A) 3.82 X 10*3/uL (1.80-7.70); Neutrophils % (A) 52.4 %; Platelet Count 229 X 10*3/uL (140-440); RBC 5.03 X 10*6/uL (4.40-5.60); RDW 13.7 % (11.5-14.5); WBC 7.29 X 10*3/uL (4.50-10.00)
== END | disposition home or self-care (01) ==
LOC: LABWHC1 11:13
PROVIDERS: ATTEND Internal Medicine Gastroenterology
DX: K75.81 Nonalcoholic steatohepatitis (NASH) (principal)
CPT/HCPCS: 36415; 80053; 85025

== ENCOUNTER → 2024-05-19 | Outpatient (CLI) | payer OTHER ==
--- NOTE | 2024-05-19 09:25 | US ---
EXAMINATION TYPE: US Aorta Screening DATE OF EXAM: 05/19/2024 COMPARISON: NONE CLINICAL INDICATION: Male, 69 years old with history of Z13.6 Screening for cardiovascular disorders; TECHNIQUE: Multiple sonographic images of the abdominal aorta are obtained with grayscale and color D oppler imaging. 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 IMPRESSION: No evidence for aortic aneurysm. [facility], , 05/19/2024 9:23 AM
== END | disposition home or self-care (01) ==
LOC: RADUSWWP 08:51
PROVIDERS: ATTEND Family Medicine
DX: Z13.6 Encounter for screening for cardiovascular disorders (principal)
CPT/HCPCS: 76706